=== PATIENT | female | born 1950 | race African-American/Black ===

== ENCOUNTER 2016-07-14 11:14 | Emergency (ER) | payer OTHER ==
[2016-07-14 11:24] VITALS: TEMP 98.2; BMI 35.4
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
[2016-07-14 13:10] LABS: BASOPHIL 0.4 % (0-2.0); EOSINOPHIL 1.3 % (0-4.5); MCH 27.4 pg (25.7-33.7); MCHC 32.6 g/dl (32.0-36.0); MEAN CELL VOLUME 84.1 fl (80-96); MEAN PLT VOLUME 7.9 fl (7.5-11.1); NEUTROPHILS 58.3 % (42.8-82.8); PLATELET COUNT 175 K/MM3 (134-434); RDW 14.6 % (11.6-15.6); WHITE BLOOD COUNT 4.8 K/mm3 (4.0-10.0)
[2016-07-14 13:27] LABS: ALBUMIN 3.6 g/dl (3.4-5.0); ANION GAP 7 (8-16); CALCIUM 8.8 mg/dL (8.5-10.1); CO2 28 mmol/L (21-32); CREATININE 0.7 mg/dL (0.55-1.02); GLUCOSE,RANDOM 75 mg/dL (74-106); SGOT/AST 17 U/L (15-37); SGPT/ALT 15 U/L (12-78)
[2016-07-14 13:31] LABS: ALK PHOS 70 U/L (45-117); BILIRUBIN,TOTAL 0.7 mg/dL (0.2-1.0); TOT PROT 7.5 g/dl (6.4-8.2); TROPONIN I < 0.02 ng/ml (0.00-0.05)
[2016-07-14 13:44] LABS: INR 1.11 (0.82-1.09); PROTHROMBIN TIME (PATIENT) 12.2 SEC (9.98-11.88)
[2016-07-14 14:51] VITALS: BP 125/78; PULSE 70
[2016-07-14 15:15] LABS: URINE APPEARANCE CLEAR; URINE BILIRUBIN NEGATIVE (NEGATIVE); URINE COLOR LTYELLOW; URINE GLUCOSE (UA) NEGATIVE (NEGATIVE); URINE KETONE NEGATIVE (NEGATIVE); URINE LEUK ESTERASE NEGATIVE (NEGATIVE); URINE NITRITE NEGATIVE (NEGATIVE); URINE PROTEIN NEGATIVE (NEGATIVE); URINE UROBILINOGEN NEGATIVE E.U./dl (0.2-1.0)
[2016-07-14 15:23] LABS: URINE BLOOD 1+ (NEGATIVE)
[2016-07-14 15:38] LABS: URINE MUCUS RARE; URINE RBC 1 /hpf (0-3); URINE WBC 1 /hpf (3-5)
--- NOTE | 2016-07-14 16:04 | EKG ---
Test Reason : Blood Pressure : / mmHG Vent. Rate : 064 BPM Atrial Rate : 064 BPM P-R Int : 146 ms QRS Dur : 066 ms QT Int : 432 ms P-R-T Axes : 045 058 008 degrees QTc Int : 445 ms NORMAL SINUS RHYTHM NORMAL ECG WHEN COMPARED WITH ECG OF 05-FEB-2016 12:39, NO SIGNIFICANT CHANGE WAS FOUND Confirmed by TATIANA BORDEN MD ([id number]) on 07/14/2016 4:03:25 PM Referred By: Confirmed By:TATIANA BORDEN MD
== END 2016-07-14 16:00 | disposition home or self-care (01) ==
LOC: JER 11:14
DX: R42 Dizziness and giddiness (principal)
CPT/HCPCS: 36415; 70450-TC; 80053; 81003; 81015; 82550; 84484; 85025; 85610; 93005; 93010; 99281-25

== ENCOUNTER 2016-08-22 07:18 | Day surgery (SDC) | payer OTHER ==
[2016-08-20 16:48] VITALS: BMI 31.6
[2016-08-22] MEDS ORDERED: PROPOFOL 20 ML ONE (08:02)
[2016-08-22] MEDS ORDERED: MIDAZOLAM HCL 2 MG/2 ML SINGLE DOSE VIAL ONE (08:02)
[2016-08-22] MEDS ORDERED: LIDOCAINE HCL 2% (20ML MULTI-DOSE VIAL) NR ONE (08:04)
--- NOTE | 2016-08-22 08:57 | HP ---
Satellite [facility] - Chief Complaint Chief Complaint: stiffness s/p left TKR History Source: Patient Limitations to Obtaining History: No Limitations - Past Medical History Allergies/Adverse Reactions: Allergies Allergy/AdvReac Type Severity Reaction Status Date / Time No Known Drug Allergies Allergy Verified 08/20/16 16:54 Gastrointestinal: Yes: Diverticulitis Hepatobiliary: Yes: Hepatitis C Heme/Onc: Yes: Anemia Endocrine: Yes: Hyperthyroidism - Current Medications Current Medications: Home Medications Medication Instructions Recorded Levothyroxine [Synthroid -] 75 mcg PO DAILY 01/18/16 Oxycodone HCl 5 mg PO Q8H PRN 02/05/16 Cetirizine HCl [Zyrtec -] 10 mg PO DAILY 08/20/16 Cholecalciferol (Vitamin D3) 1,000 unit PO DAILY 08/20/16 [Vitamin D3 -] Cyanocobalamin (Vitamin B-12) 2,500 mcg PO DAILY 08/20/16 [Vitamin B12] [place]-3 Fatty Acids [[place]-3] 1,000 mg PO DAILY 08/20/16 Zolpidem Tartrate [Ambien] 5 mg PO HS 08/22/16 Satellite Physical Exam - Physical Examination Vital Signs: Vital Signs Period Temp Pulse Resp BP Sys/Luna Pulse Ox Last 24 Hr 98.1 F 85 20 100/74 99 Extremities: Other (AROM 0-60) Satellite Impression/Plan - Impression/Plan Impression: stiffness s/p left TKR Operative Procedure: GUANACO left knee Date to be Performed: 08/22/16
--- NOTE | 2016-08-22 09:02 | OP ---
Operative Note - Note: Operative Date: 08/22/16 Pre-Operative Diagnosis: stiffness s/p left TKR Operation: GUANACO left knee Post-Operative Diagnosis: Same as Pre-op Surgeon: Ramy Santo Anesthesia: General Estimated Blood Loss (mls): 0 Operative Report Dictated: Yes
[2016-08-22] MEDS ORDERED: ONDANSETRON 4 MG/2 ML VIAL IVPUSH PRN (09:16)
[2016-08-22] MEDS ORDERED: LACTATED RINGERS SOLUTION 1,000 ML IV SCH (09:30)
[2016-08-22 10:39] VITALS: TEMP 100
[2016-08-22] MEDS ORDERED: oxyCODONE HCL 5 MG TABLET ONE (11:43)
[2016-08-22 11:53] VITALS: BP 114/63; PULSE 75
--- NOTE | 2016-08-23 10:40 | OP ---
DATE OF OPERATION: 08/22/2016 PREOPERATIVE DIAGNOSIS: Stiffness status post left total knee replacement. POSTOPERATIVE DIAGNOSIS: Stiffness status post left total knee replacement. PROCEDURE: Manipulation under anesthesia. SURGICAL ATTENDING: Ramy Santo MD ANESTHESIA: IV sedation. DESCRIPTION OF OPERATIVE PROCEDURE: Patient taken to the operating room on August 22, 2016. IV sedation was administered by the anesthesiologist. Prior to the manipulation, patient had range of motion of 0 to 60, maybe 70 degrees. A gentle manipulation was performed and the knee was able to go from 0 to 120 degrees of flexion. The patella was mobilized as well. Patient was awakened from anesthesia and transferred to recovery in stable condition. No complications. Flori LEBLANC/[id number]
== END 2016-08-22 12:17 | disposition home or self-care (01) ==
LOC: JASU-SURG 07:18
PROVIDERS: ATTEND Orthopaedic Surgery
PROC: 0SSDXZZ Reposition Left Knee Joint, External Approach (ICD-10-PCS; principal; 2016-08-22 08:45)
DX: M24.662 Ankylosis, left knee (principal); Z96.652 Presence of left artificial knee joint
CPT/HCPCS: 94760

== ENCOUNTER 2018-02-17 22:25 | Emergency (ER) | payer OTHER ==
[2018-02-17] MEDS ORDERED: ACETAMINOPHEN 325 MG TABLET (FP) PO ONE (22:31)
[2018-02-17 22:39] VITALS: BP 116/85; PULSE 79; TEMP 98.2; BMI 30.9
[2018-02-17] MEDS ORDERED: IBUPROFEN 600 MG TABLET (FP) PO ONE (23:34)
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
[2018-02-17] MEDS ORDERED: ACETAMINOPHEN 325 MG TABLET (FP) ONE (23:37)
--- NOTE | 2018-02-18 15:20 | PDOC ---
*Physical Exam - Vital Signs Last Vital Signs Temp Pulse Resp BP Pulse Ox 98.2 F 79 20 116/85 97 02/17/18 22:32 02/17/18 22:32 02/17/18 22:32 02/17/18 22:32 02/17/18 22:32 ED Treatment Course - Medications Given in the ED: ED Medications Discontinued Medications Generic Name Dose Route Start Last Admin Trade Name Sally PRN Reason Stop Dose Admin Acetaminophen 975 mg 02/17/18 22:31 02/18/18 00:22 Tylenol - PO 02/17/18 22:32 975 mg ONCE ONE Administration Ibuprofen 600 mg 02/17/18 23:34 02/18/18 00:23 Motrin - PO 02/17/18 23:35 600 mg ONCE ONE Administration Medical Decision Making - Medical Decision Making 02/18/18 15:19 I had spoke with the patient on the phone. The patient requires a work note for work. I hadvised the patient to return to the ER so I could write her one. She is here now picking up the paperwork. *DC/Admit/Observation/Transfer Diagnosis at time of Disposition: Contusion of foot including toes Qualifiers: Encounter type: initial encounter Laterality: unspecified laterality Qualified Code(s): S90.30XA - Contusion of unspecified foot, initial encounter; S90.129A - Contusion of unspecified lesser toe(s) without damage to nail, initial encounter Knee pain, right Qualifiers: Chronicity: acute Qualified Code(s): M25.561 - Pain in right knee - Discharge Dispostion Disposition: HOME Condition at time of disposition: Good - Referrals Referrals: Ramy Santo MD [Staff Physician] - Roman Cabrales MD [Primary Care Provider] - Santino Jordan MD [Staff Physician] - - Patient Instructions Printed Discharge Instructions: DI for Contusion, DI for Foot Sprain, DI for Knee Pain Additional Instructions: rest ice and elevate your foot use the boot and wraps for comfort, use crutches to help you ambulate and walk work note to be provided limit strenuous physical activity follow up with your orthopedic doctor for followup. - Post Discharge Activity Forms/Work/School Notes: Back to Work
== END 2018-02-18 02:11 | disposition home or self-care (01) ==
LOC: JER 22:25
DX: S90.31XA Contusion of right foot, initial encounter (principal); V79.88XA Bus occupant (driver) (passenger) injured in other specified transport accidents, initial encounter; Y93.89 Activity, other specified; Y92.811 Bus as the place of occurrence of the external cause; Y99.8 Other external cause status
CPT/HCPCS: 73562-TC-RT-FY; 73610-TC-RT-FY; 73630-TC-RT-FY; 99282-25

== ENCOUNTER 2018-05-18 13:16 | Inpatient (IN) | payer OTHER ==
--- NOTE | 2018-05-18 14:40 | PDOC ---
Attending Attestation - Resident Resident Name: Windy Bazan - ED Attending Attestation I have performed the following: I have examined & evaluated the patient, The case was reviewed & discussed with the resident, I agree w/resident's findings & plan, Exceptions are as noted - HPI HPI: 68 yo F history diverticulitis, cholecystectomy, herniorrhaphy, craniotomy (as teenager) presents with diarrhea, blood stool, vomiting multiple times today. Abd pain localizes to LLQ. She estimates that she passed approximately 1 cup of blood today. This is similar to prior episodes with diverticulitis. - Physicial Exam PE: GENERAL: Awake, alert, and fully oriented, in no acute distress. Appears uncomfortable. HEAD: No signs of trauma EYES: PERRLA, EOMI, sclera anicteric, conjunctiva clear ENT: Auricles normal inspection, hearing grossly normal, nares patent, oropharynx clear without exudates. Dry mucosa NECK: Normal ROM, supple, no lymphadenopathy, JVD, or masses LUNGS: Breath sounds equal, clear to auscultation bilaterally. No wheezes, and no crackles HEART: Regular rate and rhythm, normal S1 and S2, no murmurs, rubs or gallops ABDOMEN: Soft, diffusely tender, normoactive bowel sounds. +Guarding, no rebound. No masses. Multiple well-healed abdominal scars. EXTREMITIES: Normal range of motion, no edema. No clubbing or cyanosis. No cords , erythema, or tenderness NEUROLOGICAL: Cranial nerves II through XII grossly intact. Normal speech, normal gait. Motor and sensation intact SKIN: Warm, Dry, normal turgor, no rashes or lesions noted. - Medical Decision Making Pt with rectal bleeding, multiple prior abd surgeries, prior history diverticulitis. Will obtain CT. Likely admission based on prior history.
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
[2018-05-18] MEDS ORDERED: SODIUM CHLORIDE 2,449 ML IV ONE (14:53)
[2018-05-18] MEDS ORDERED: ACETAMINOPHEN 1000 MG/100 ML VIAL (NON FORMULARY) IVPB ONE (14:55)
[2018-05-18] MEDS ORDERED: ACETAMINOPHEN INJECTION 100 ML IVPB ONE (15:16)
[2018-05-18 15:39] LABS: BASO % 0.3 % (0-2.0); HEMATOCRIT 43.1 % (32.4-45.2); HEMOGLOBIN 14.2 GM/dL (10.7-15.3); LYMPH % 5.4 % (8-40); MCH 27.6 pg (25.7-33.7); MEAN CELL VOLUME 83.7 fl (80-96); MEAN PLT VOLUME 7.4 fl (7.5-11.1); MONO % 9.2 % (3.8-10.2); NEUT % 85.1 % (42.8-82.8); PLATELET COUNT 220 K/MM3 (134-434); RBC 5.15 M/mm3 (3.60-5.2); RDW 12.9 % (11.6-15.6); WHITE BLOOD COUNT 14.5 K/mm3 (4.0-10.0)
--- NOTE | 2018-05-18 15:48 | EKG ---
Test Reason : Blood Pressure : / mmHG Vent. Rate : 088 BPM Atrial Rate : 088 BPM P-R Int : 132 ms QRS Dur : 062 ms QT Int : 344 ms P-R-T Axes : 055 052 -22 degrees QTc Int : 416 ms NORMAL SINUS RHYTHM NONSPECIFIC T WAVE ABNORMALITY ABNORMAL ECG WHEN COMPARED WITH ECG OF 14-JUL-2016 12:36, INVERTED T WAVES HAVE REPLACED NONSPECIFIC T WAVE ABNORMALITY IN ANTERIOR LEADS Confirmed by William Bradford ([id number]) on 05/18/2018 3:48:34 PM Referred By: Confirmed By:William Bradford
[2018-05-18 15:53] LABS: VENOUS PC02 49.4 mmHg (38-52); VENOUS PH 7.37 (7.32-7.42); VENOUS PO2 18.8 mmHg (28-48)
[2018-05-18 15:54] LABS: INR 1.08 (0.83-1.09); PROTHROMBIN TIME (PATIENT) 12.7 SEC (9.7-13.0)
[2018-05-18 15:57] LABS: ACTIVATED PTT 31.5 SECONDS (25.2-36.5)
[2018-05-18 16:08] LABS: ALBUMIN 4.3 g/dl (3.4-5.0); ALK PHOS 83 U/L (45-117); ANION GAP 7 MMOL/L (8-16); BILIRUBIN,TOTAL 0.7 mg/dL (0.2-1); BLOOD UREA NITROGEN 9 mg/dL (7-18); CALCIUM 9.8 mg/dL (8.5-10.1); CHLORIDE 100 mmol/L (98-107); CO2 29 mmol/L (21-32); CREATININE 0.8 mg/dL (0.55-1.3); GLUCOSE,RANDOM 103 mg/dL (74-106); POTASSIUM 4.2 mmol/L (3.5-5.1); SGOT/AST 22 U/L (15-37); SGPT/ALT 23 U/L (13-61); SODIUM 135 mmol/L (136-145); TOT PROT 8.9 g/dl (6.4-8.2)
[2018-05-18 17:13] LABS: URINE APPEARANCE CLEAR; URINE BILIRUBIN NEGATIVE (<2.0 mg/dL); URINE COLOR LTYELLOW; URINE GLUCOSE (UA) NEGATIVE (NEGATIVE); URINE KETONE NEGATIVE (NEGATIVE); URINE LEUK ESTERASE NEGATIVE (NEGATIVE); URINE NITRITE NEGATIVE (NEGATIVE); URINE PROTEIN NEGATIVE (NEGATIVE); URINE UROBILINOGEN NEGATIVE mg/dL (0.2-1.0)
--- NOTE | 2018-05-18 17:19 | PDOC ---
*Physical Exam - Vital Signs Last Vital Signs Temp Pulse Resp BP Pulse Ox 100.6 F H 96 H 17 147/87 99 05/18/18 14:52 05/18/18 13:25 05/18/18 13:25 05/18/18 13:25 05/18/18 13:25 ED Treatment Course - LABORATORY CBC & Chemistry Diagram: 05/18/18 15:30 05/18/18 15:30 - ADDITIONAL ORDERS Additional order review: Laboratory Results 05/18/18 05/18/18 05/18/18 15:32 15:30 15:30 PT with INR INR PTT (Actin FS) VBG pH POC VBG pCO2 POC VBG pO2 Mixed VBG HCO3 Sodium Potassium Chloride Carbon Dioxide Anion Gap BUN Creatinine Creat Clearance w eGFR Random Glucose Lactic Acid 2.1 H Calcium Total Bilirubin AST ALT Alkaline Phosphatase Troponin I < 0.02 Total Protein Albumin Stool Occult Blood Positive 05/18/18 05/18/18 05/18/18 15:30 15:30 15:30 PT with INR 12.70 INR 1.08 PTT (Actin FS) 31.5 VBG pH 7.37 POC VBG pCO2 49.4 POC VBG pO2 18.8 L* Mixed VBG HCO3 27.9 H Sodium 135 L Potassium 4.2 Chloride 100 Carbon Dioxide 29 Anion Gap 7 L BUN 9 Creatinine 0.8 Creat Clearance w eGFR > 60 Random Glucose 103 Lactic Acid Calcium 9.8 Total Bilirubin 0.7 AST 22 ALT 23 Alkaline Phosphatase 83 Troponin I Total Protein 8.9 H Albumin 4.3 Stool Occult Blood 05/18/18 15:30 RBC 5.15 MCV 83.7 MCHC 33.0 RDW 12.9 D MPV 7.4 L Neutrophils % 85.1 H D Lymphocytes % 5.4 L D Monocytes % 9.2 Eosinophils % 0.0 D Basophils % 0.3 - Medications Given in the ED: ED Medications Discontinued Medications Generic Name Dose Route Start Last Admin Trade Name Freq PRN Reason Stop Dose Admin Acetaminophen 1,000 mg 05/18/18 14:55 05/18/18 15:28 Ofirmev Injection - IVPB 05/18/18 14:56 1,000 mg ONCE ONE Administration Sodium Chloride 2,449 mls @ 1,224.5 mls/hr 05/18/18 14:53 05/18/18 15:28 Normal Saline - 30 ml/kg infuse over 2 hr (2449 ml) 05/18/18 16:52 1,224.5 mls/hr IV Administration ONCE ONE Medical Decision Making - Medical Decision Making 05/18/18 17:14 68 yo female p/w rectal bleeding ,fever 100.6 05/18/18 19:19 ct scan of abd/pel is colitis,pt given antibiotics and admitted to med/surg *DC/Admit/Observation/Transfer Diagnosis at time of Disposition: Diverticulitis, Rectal bleeding, Vomiting, Intractable abdominal pain - Discharge Dispostion Condition at time of disposition: Guarded - Referrals - Patient Instructions - Post Discharge Activity
[2018-05-18 17:23] LABS: EPI CELLS RARE /HPF (FEW); URINE MUCUS RARE
[2018-05-18] MEDS ORDERED: morphine CARPU-JECT 4 MG/1 ML DISP.SYRIN IVPUSH ONE (18:15)
[2018-05-18] MEDS ORDERED: morphine SULFATE 4 MG/ML VIAL ONE (18:34)
[2018-05-19] MEDS ORDERED: MORPHINE SULFATE 2 MG/ML VIAL IVPUSH ONE ×2 (00:38→11:30)
[2018-05-19] MEDS ORDERED: SODIUM CHLORIDE 1,000 ML IV SCH (01:00)
[2018-05-19 01:31] VITALS: BMI 33.6
[2018-05-19] MEDS ORDERED: oxyCODONE HCL 5 MG TABLET PO PRN (02:13)
[2018-05-19] MEDS ORDERED: MORPHINE SULFATE 2 MG/ML VIAL IVPUSH PRN (02:41)
[2018-05-19] MEDS: DEXTROSE 5%-0.45% SALINE 1,000 ML IV SCH ×2 (02:53→20:33)
[2018-05-19] MEDS: LEVOTHYROXINE NA 75 MCG TABLET (FP) PO SCH (06:22)
[2018-05-19 07:35] LABS: BASO % 0.4 % (0-2.0); HEMATOCRIT 37.8 % (32.4-45.2); HEMOGLOBIN 12.5 GM/dL (10.7-15.3); LYMPH % 9.6 % (8-40); MCH 27.7 pg (25.7-33.7); MEAN CELL VOLUME 84.2 fl (80-96); MEAN PLT VOLUME 7.9 fl (7.5-11.1); MONO % 10.6 % (3.8-10.2); NEUT % 79.4 % (42.8-82.8); PLATELET COUNT 173 K/MM3 (134-434); RBC 4.49 M/mm3 (3.60-5.2); RDW 12.8 % (11.6-15.6); WHITE BLOOD COUNT 14.4 K/mm3 (4.0-10.0)
--- NOTE | 2018-05-19 07:35 | PN ---
Progress Note (short form) - Note Progress Note: Patient seen and case discussed with Dr. Del Toro GI consult placed due to Abdominal and Pelvic CT scan showing colitis. Patient this morning and she states she is followed by Dr. Bloom for GI as an outpatient. While in-patient she requests to have Dr. Bloom follow her case. New consult placed for Dr. Bloom.
[2018-05-19 07:57] LABS: ALBUMIN 3.3 g/dl (3.4-5.0); ALK PHOS 64 U/L (45-117); ANION GAP 9 MMOL/L (8-16); BILIRUBIN,TOTAL 0.9 mg/dL (0.2-1); BLOOD UREA NITROGEN 8 mg/dL (7-18); CALCIUM 9.1 mg/dL (8.5-10.1); CHLORIDE 105 mmol/L (98-107); CO2 24 mmol/L (21-32); CREATININE 0.8 mg/dL (0.55-1.3); GLUCOSE,RANDOM 121 mg/dL (74-106); POTASSIUM 3.7 mmol/L (3.5-5.1); SGOT/AST 15 U/L (15-37); SGPT/ALT 17 U/L (13-61); SODIUM 139 mmol/L (136-145)
[2018-05-19] MEDS: ACETAMINOPHEN 325 MG TABLET (FP) PO PRN ×2 (10:00→18:42)
[2018-05-19] MEDS: HEPARIN NA (PORCINE) 5,000 UNITS/ML 1ML VIAL SQ SCH ×2 (10:01→21:18)
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
[2018-05-19] MEDS: ONDANSETRON 4 MG/2 ML VIAL IVPUSH PRN (11:59)
[2018-05-19] MEDS ORDERED: BISACODYL 5 MG TABLET.DR (FP) PO ONE (12:18)
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
[2018-05-19] MEDS: MORPHINE SULFATE 2 MG/ML VIAL IVPUSH PRN ×3 (15:32→23:55)
[2018-05-19] MEDS ORDERED: PIPERACILLIN/TAZOBACTAM 3.375 GM VIAL IVPB ONE (18:38)
[2018-05-19] MEDS ORDERED: DEXTROSE 5%-WATER - 50 ML IVPB ONE (18:38)
[2018-05-19] MEDS: PIPERACILLIN/TAZOB 3.375 GM 3.375 GM in DEXTROSE 5%-WATER - 50 ML IVPB SCH (18:43)
[2018-05-20] MEDS ORDERED: PIPERACILLIN/TAZOBACTAM 3.375 GM VIAL IVPB ONE ×3 (01:56→17:30)
[2018-05-20] MEDS ORDERED: DEXTROSE 5%-WATER - 50 ML IVPB ONE ×3 (01:56→17:30)
[2018-05-20] MEDS: PIPERACILLIN/TAZOB 3.375 GM 3.375 GM in DEXTROSE 5%-WATER - 50 ML IVPB SCH ×3 (01:58→17:46)
[2018-05-20] MEDS ORDERED: DEXTROSE 5%-0.45% SALINE 1,000 ML IV SCH (02:30)
[2018-05-20] MEDS: DEXTROSE 5%-0.45% SALINE 1,000 ML IV SCH ×3 (03:27→22:58)
[2018-05-20] MEDS: MORPHINE SULFATE 2 MG/ML VIAL IVPUSH PRN ×3 (06:40→16:18)
[2018-05-20] MEDS: LEVOTHYROXINE NA 75 MCG TABLET (FP) PO SCH (06:41)
[2018-05-20 07:29] LABS: BASO % 0.2 % (0-2.0); EOS % 0.6 % (0-4.5); HEMATOCRIT 36.5 % (32.4-45.2); LYMPH % 12.2 % (8-40); MCH 27.7 pg (25.7-33.7); MCHC 32.8 g/dl (32.0-36.0); MEAN CELL VOLUME 84.4 fl (80-96); MEAN PLT VOLUME 7.7 fl (7.5-11.1); MONO % 9.9 % (3.8-10.2); NEUT % 77.1 % (42.8-82.8); PLATELET COUNT 176 K/MM3 (134-434); RBC 4.33 M/mm3 (3.60-5.2); RDW 13.2 % (11.6-15.6); WHITE BLOOD COUNT 12.1 K/mm3 (4.0-10.0)
[2018-05-20 07:53] LABS: ANION GAP 6 MMOL/L (8-16); BLOOD UREA NITROGEN 5 mg/dL (7-18); CHLORIDE 105 mmol/L (98-107); CO2 27 mmol/L (21-32); CREATININE 0.9 mg/dL (0.55-1.3); GLUCOSE,RANDOM 110 mg/dL (74-106); POTASSIUM 3.8 mmol/L (3.5-5.1); SODIUM 137 mmol/L (136-145)
--- NOTE | 2018-05-20 08:42 | CONSULT ---
- Consultation REQUESTING PROVIDER: CONSULT REQUEST: We have been asked to surgically evaluate this patient for rectal bleeding/abd pain PCP:Maura Sheehan HISTORY OF PRESENT ILLNESS: 68yo F admitted to the hospital for colitis and rectal bleeding. Pt states that bloody diarrhea started 2 days ago, with associated n/v. Pt also complained of diffuse abd pain, which persists but is improving. Pt now complains of nausea, but no vomiting. In 2005 pt states that she had episode of diverticulitis, but no bloody stool at the time. Pt had multiple abd surgeries including, lap [place], , and incisional hernia repair. Pt currently denies any fever and last bloody BM was 2 days ago. PMHx: hypothyroidism Home Medications Medication Instructions Recorded Levothyroxine [Synthroid -] 75 mcg PO DAILY 01/18/16 Oxycodone HCl 5 mg PO Q8H PRN 02/05/16 Cholecalciferol (Vitamin D3) 1,000 unit PO DAILY 08/20/16 [Vitamin D3 -] [place]-3 Fatty Acids [[place]-3] 1,000 mg PO DAILY 08/20/16 Loratadine [Claritin -] 10 mg PO DAILY 05/18/18 Allergies Allergy/AdvReac Type Severity Reaction Status Date / Time No Known Drug Allergies Allergy Verified 08/20/16 16:54 PHYSICAL EXAM: GENERAL: Awake, alert, and fully oriented, in no acute distress. HEAD: Normal with no signs of trauma. EYES: PERRL, sclera anicteric, conjunctiva clear. NECK: Normal ROM LUNGS: Clear to auscultation bilat anteriorly. No wheezes, and no crackles. No accessory muscle use. HEART: Regular rate and rhythm. No murmurs ABDOMEN: Soft, mild distension, moderate diffuse tenderness, no rebound, no masses. No organomegaly. LOWER EXTREMITIES: No peripheral edema. NEUROLOGICAL: Normal speech, gait not observed. PSYCH: Cooperative. Good eye contact. Appropriate mood and affect. SKIN: Warm, dry, normal turgor, no rashes or lesions noted. Vital Signs Temperature 98.6 F 05/20/18 06:00 Pulse Rate 73 05/20/18 06:00 Respiratory Rate 18 05/20/18 06:00 Blood Pressure 88/56 L 05/20/18 06:00 O2 Sat by Pulse Oximetry (%) 95 05/19/18 21:00 Lab Results WBC 12.1 K/mm3 (4.0-10.0) H 05/20/18 06:30 RBC 4.33 M/mm3 (3.60-5.2) 05/20/18 06:30 Hgb 12.0 GM/dL (10.7-15.3) 05/20/18 06:30 Hct 36.5 % (32.4-45.2) 05/20/18 06:30 MCV 84.4 fl (80-96) 05/20/18 06:30 MCHC 32.8 g/dl (32.0-36.0) 05/20/18 06:30 RDW 13.2 % (11.6-15.6) 05/20/18 06:30 Plt Count 176 K/MM3 (134-434) 05/20/18 06:30 Sodium 137 mmol/L (136-145) 05/20/18 06:30 Potassium 3.8 mmol/L (3.5-5.1) 05/20/18 06:30 Chloride 105 mmol/L (98-107) 05/20/18 06:30 Carbon Dioxide 27 mmol/L (21-32) 05/20/18 06:30 Anion Gap 6 MMOL/L (8-16) L 05/20/18 06:30 BUN 5 mg/dL (7-18) L 05/20/18 06:30 Creatinine 0.9 mg/dL (0.55-1.3) 05/20/18 06:30 Random Glucose 110 mg/dL (74-106) H 05/20/18 06:30 Calcium 8.0 mg/dL (8.5-10.1) L 05/20/18 06:30 Blood Type A POSITIVE 05/18/18 15:30 Antibody Screen Negative 05/18/18 15:30 INR 1.08 (0.83-1.09) 05/18/18 15:30 Problem List - Problems (1) Colitis Assessment/Plan: Plan -continue IV abx as per med/ID -serial abd exams -per GI note will have colonoscopy on Thursday -NPO w/ IV fluides -will continue to follow. Code(s): K52.9 - NONINFECTIVE GASTROENTERITIS AND COLITIS, UNSPECIFIED
[2018-05-20] MEDS ORDERED: PEG3350/SOD SULF,BICARB,CL/KCL 4,000 ML SOLN.RECON PO ONE (09:00)
[2018-05-20] MEDS: HEPARIN NA (PORCINE) 5,000 UNITS/ML 1ML VIAL SQ SCH ×2 (10:37→22:59)
--- NOTE | 2018-05-20 12:05 | PN ---
Progress Note, Physician History of Present Illness: continues to have abd pain plan is for ct scan of the abdomen - Current Medication List Current Medications: Active Medications Acetaminophen (Tylenol -) 650 mg PO Q6H PRN PRN Reason: PAIN LEVEL 1-5 Last Admin: 05/19/18 18:42 Dose: 650 mg Bisacodyl (Dulcolax -) 20 mg PO ONCE ONE Stop: 05/20/18 18:01 Heparin Sodium (Porcine) (Heparin -) 5,000 unit SQ BID [facility] Last Admin: 05/20/18 10:37 Dose: 5,000 unit Piperacillin Sod/Tazobactam (Sod 3.375 gm/ Dextrose) 50 mls @ 100 mls/hr IVPB Q8H-IV AUDRA; Protocol Last Admin: 05/20/18 10:37 Dose: 100 mls/hr Dextrose/Sodium Chloride (D5-1/2ns -) 1,000 mls @ 125 mls/hr IV ASDIR AUDRA Last Admin: 05/20/18 10:37 Dose: 125 mls/hr Levothyroxine Sodium (Synthroid -) 75 mcg PO DAILY@0700 [facility] Last Admin: 05/20/18 06:41 Dose: 75 mcg Morphine Sulfate (Morphine Sulfate) 2 mg IVPUSH Q4H PRN PRN Reason: PAIN LEVEL 6-10 Last Admin: 05/20/18 10:37 Dose: 2 mg Ondansetron HCl (Zofran Injection) 4 mg IVPUSH Q8H PRN PRN Reason: NAUSEA Last Admin: 05/19/18 11:59 Dose: 4 mg - Objective Vital Signs: Vital Signs Temperature 98.6 F 05/20/18 06:00 Pulse Rate 73 05/20/18 09:36 Respiratory Rate 20 05/20/18 09:36 Blood Pressure 105/63 05/20/18 09:36 O2 Sat by Pulse Oximetry (%) 95 05/20/18 09:00 Constitutional: Yes: Calm Cardiovascular: Yes: Regular Rate and Rhythm Respiratory: Yes: Regular, CTA Bilaterally Gastrointestinal: Yes: Soft, Tenderness (left lower quadrant), Other (absent bowel sounds) Musculoskeletal: Yes: WNL Extremities: Yes: WNL Neurological: Yes: Alert, Oriented Psychiatric: Yes: Alert, Oriented Labs: CBC, BMP 05/20/18 06:30 05/20/18 06:30 INR, PTT INR 1.08 (0.83-1.09) 05/18/18 15:30 Assessment/Plan patient with abd pain,blood per rectum,continues to have severe abd pain imaging studies shows ac colitis and patient having leukocytosis also patientents previous history noted Problem List - Problems (1) Colitis Code(s): K52.9 - NONINFECTIVE GASTROENTERITIS AND COLITIS, UNSPECIFIED (2) Diverticulosis Code(s): K57.90 - DVRTCLOS OF INTEST, PART UNSP, W/O PERF OR ABSCESS W/O BLEED (3) Family history of colon cancer in father Code(s): Z80.0 - FAMILY HISTORY OF MALIGNANT NEOPLASM OF DIGESTIVE ORGANS (4) History of cocaine abuse Code(s): Z87.898 - PERSONAL HISTORY OF OTHER SPECIFIED CONDITIONS (5) History of heroin abuse Code(s): Z87.898 - PERSONAL HISTORY OF OTHER SPECIFIED CONDITIONS (6) History of cholecystectomy Code(s): Z90.49 - ACQUIRED ABSENCE OF OTHER SPECIFIED PARTS OF DIGESTIVE TRACT (7) Diverticulitis Assessment/Plan: Doubt diverticulitis or diverticular bleed Code(s): K57.92 - DVTRCLI OF INTEST, PART UNSP, W/O PERF OR ABSCESS W/O BLEED (8) Rectal bleeding Code(s): K62.5 - HEMORRHAGE OF ANUS AND RECTUM (9) Hepatitis C Assessment/Plan: Has been cured. Will check AFP Code(s): B19.20 - UNSPECIFIED VIRAL HEPATITIS C WITHOUT HEPATIC COMA Assessment/Plan continue current mgmt await for ct abx hydration rest as per the team
--- NOTE | 2018-05-20 15:22 | PN ---
Progress Note (short form) - Note Progress Note: 68 yr old with colitis extending from the transverse colon to the sigmoidand rectum. She remains with diffuse abdominal pain Exam diffusely tender but no peritonitis WBC decreasing Ct imaging shows some improvement Colitis iischemic vs infectious continue antibiotics and observation
--- NOTE | 2018-05-20 17:54 | PN ---
Progress Note, Physician History of Present Illness: Pt still having abdominal pain but no further bleeding - Current Medication List Current Medications: Active Medications Acetaminophen (Tylenol -) 650 mg PO Q6H PRN PRN Reason: PAIN LEVEL 1-5 Last Admin: 05/19/18 18:42 Dose: 650 mg Bisacodyl (Dulcolax -) 20 mg PO ONCE ONE Stop: 05/20/18 18:01 Heparin Sodium (Porcine) (Heparin -) 5,000 unit SQ BID [facility] Last Admin: 05/20/18 10:37 Dose: 5,000 unit Piperacillin Sod/Tazobactam (Sod 3.375 gm/ Dextrose) 50 mls @ 100 mls/hr IVPB Q8H-IV AUDRA; Protocol Last Admin: 05/20/18 17:46 Dose: 100 mls/hr Dextrose/Sodium Chloride (D5-1/2ns -) 1,000 mls @ 125 mls/hr IV ASDIR AUDRA Last Admin: 05/20/18 10:37 Dose: 125 mls/hr Levothyroxine Sodium (Synthroid -) 75 mcg PO DAILY@0700 [facility] Last Admin: 05/20/18 06:41 Dose: 75 mcg Morphine Sulfate (Morphine Sulfate) 2 mg IVPUSH Q4H PRN PRN Reason: PAIN LEVEL 6-10 Last Admin: 05/20/18 16:18 Dose: 2 mg Ondansetron HCl (Zofran Injection) 4 mg IVPUSH Q8H PRN PRN Reason: NAUSEA Last Admin: 05/19/18 11:59 Dose: 4 mg Oxycodone HCl (Roxicodone -) 10 mg PO Q4H PRN PRN Reason: PAIN SCALE 5-10 - Objective Vital Signs: Vital Signs Temperature 98.2 F 05/20/18 13:02 Pulse Rate 73 05/20/18 13:02 Respiratory Rate 18 05/20/18 13:02 Blood Pressure 105/62 05/20/18 13:02 O2 Sat by Pulse Oximetry (%) 95 05/20/18 09:00 HENT: Yes: WNL Neck: Yes: WNL, Supple Cardiovascular: Yes: WNL, Regular Rate and Rhythm Respiratory: Yes: WNL, Regular, CTA Bilaterally Gastrointestinal: Yes: Normal Bowel Sounds, Soft, Other ((+) minimal LLQ tenderness on palpation (-) guarding/rebound) Labs: CBC, BMP 05/20/18 06:30 05/20/18 06:30 INR, PTT INR 1.08 (0.83-1.09) 05/18/18 15:30 Problem List - Problems (1) Abdominal pain Assessment/Plan: Infectious colitis vs ischemic colitis Cont NPO Cont IVF/zofran/morphine Repeat ct scan abd/pelvis showed colitis w/ possible improvement As per GI possible colonoscopy in am Monitor WBC Cont IV zosyn Code(s): R10.9 - UNSPECIFIED ABDOMINAL PAIN (2) Rectal bleeding Assessment/Plan: No further bleeding Monitor H/H Pt hemodynamically stable Cont IVF/NPO Code(s): K62.5 - HEMORRHAGE OF ANUS AND RECTUM (3) Hypothyroid Assessment/Plan: Cont levothyroxine Code(s): E03.9 - HYPOTHYROIDISM, UNSPECIFIED (4) History of heroin abuse Code(s): Z87.898 - PERSONAL HISTORY OF OTHER SPECIFIED CONDITIONS
[2018-05-20] MEDS ORDERED: BISACODYL 5 MG TABLET.DR (FP) PO ONE (18:00)
[2018-05-20] MEDS ORDERED: PANTOPRAZOLE SODIUM 40 MG VIAL IVPUSH ONE (18:00)
[2018-05-20] MEDS: oxyCODONE HCL 5 MG TABLET PO PRN (19:44)
[2018-05-21] MEDS ORDERED: PIPERACILLIN/TAZOBACTAM 3.375 GM VIAL IVPB ONE ×4 (00:53→20:49)
[2018-05-21] MEDS ORDERED: DEXTROSE 5%-WATER - 50 ML IVPB ONE ×4 (00:53→20:49)
[2018-05-21] MEDS: oxyCODONE HCL 5 MG TABLET PO PRN ×5 (01:52→21:13)
[2018-05-21] MEDS: PIPERACILLIN/TAZOB 3.375 GM 3.375 GM in DEXTROSE 5%-WATER - 50 ML IVPB SCH ×3 (01:53→18:21)
[2018-05-21] MEDS: DEXTROSE 5%-0.45% SALINE 1,000 ML IV SCH ×2 (06:19→15:37)
[2018-05-21] MEDS: LEVOTHYROXINE NA 75 MCG TABLET (FP) PO SCH (06:19)
[2018-05-21] MEDS: HEPARIN NA (PORCINE) 5,000 UNITS/ML 1ML VIAL SQ SCH ×2 (09:58→21:12)
--- NOTE | 2018-05-21 10:19 | PN ---
Progress Note (short form) - Note Progress Note: Pt seen and examined. States she is doing "okay" today. Continues to have abdominal pain with examination. Reports a bowel movement this morning with passage of "alot of blood". Per RN bowel movement with burgundy with no passage of BRBPR. Has been oob without issue. Is NPO. Not passing flatus, however reports significant rumbling in her stomach. Denies cp/sob, n/v. Vital Signs Temp 98 F 05/21/18 06:00 Pulse 71 05/21/18 06:00 Resp 18 05/21/18 06:00 BP 99/62 05/21/18 06:00 Pulse Ox 96 05/20/18 21:00 Intake & Output 05/20/18 05/20/18 05/21/18 11:59 23:59 11:59 Intake Total 450 1850 975 Balance 450 1850 975 Weight 190 lb Intake: IV 450 1750 875 D5-1/2Ns - 1,000 ml @ 100 200 mls/hr IV ASDIR AUDRA Rx#: [id number] D5-1/2Ns - 1,000 ml @ 924 852 1331 875 mls/hr IV ASDIR AUDRA Rx#: [id number] IVPB 100 100 Oral 0 0 Other: Voiding Method Toilet Toilet Bowel Movement No Height 5 ft 3 in Body Mass Index (BMI) 33.6 CBC, BMP 05/20/18 06:30 05/20/18 06:30 Gen: awake, alert, nad Resp: unlabored on RA Abdo: soft, nondistended, +TTP LLQ, +bowel sounds. Ext: no edema or calf pain A/P: 68 y/o F w/ PMH diverticulitis, hypothyroidism, Hep C, and ex-IVDA(heroin/ cocaine), now a/w abdominal pain, found to have colitis. BP remains low. Leukocytosis trending down. LLQ tenderness, no signs of peritonitis. -continue IV abx as per med/ID -serial abd exams -per GI note will have colonoscopy today -NPO w/ IVF -will continue to follow above d./w attending Dr Dunn
[2018-05-21] MEDS: ACETAMINOPHEN 325 MG TABLET (FP) PO PRN ×2 (12:20→21:14)
--- NOTE | 2018-05-21 12:43 | PN ---
Progress Note, Physician History of Present Illness: patient improving still continues to have pain but improving using pain meds - Current Medication List Current Medications: Active Medications Acetaminophen (Tylenol -) 650 mg PO Q6H PRN PRN Reason: PAIN LEVEL 1-5 Last Admin: 05/21/18 12:20 Dose: 650 mg Heparin Sodium (Porcine) (Heparin -) 5,000 unit SQ BID [facility] Last Admin: 05/21/18 09:58 Dose: 5,000 unit Piperacillin Sod/Tazobactam (Sod 3.375 gm/ Dextrose) 50 mls @ 100 mls/hr IVPB Q8H-IV AUDRA; Protocol Last Admin: 05/21/18 09:57 Dose: 100 mls/hr Dextrose/Sodium Chloride (D5-1/2ns -) 1,000 mls @ 125 mls/hr IV ASDIR AUDRA Last Admin: 05/21/18 06:19 Dose: 125 mls/hr Levothyroxine Sodium (Synthroid -) 75 mcg PO DAILY@0700 [facility] Last Admin: 05/21/18 06:19 Dose: 75 mcg Morphine Sulfate (Morphine Sulfate) 2 mg IVPUSH Q4H PRN PRN Reason: PAIN LEVEL 6-10 Last Admin: 05/20/18 16:18 Dose: 2 mg Ondansetron HCl (Zofran Injection) 4 mg IVPUSH Q8H PRN PRN Reason: NAUSEA Last Admin: 05/19/18 11:59 Dose: 4 mg Oxycodone HCl (Roxicodone -) 10 mg PO Q4H PRN PRN Reason: PAIN SCALE 5-10 Last Admin: 05/21/18 10:09 Dose: 10 mg - Objective Vital Signs: Vital Signs Temperature 98.7 F 05/21/18 10:00 Pulse Rate 76 05/21/18 10:00 Respiratory Rate 18 05/21/18 10:00 Blood Pressure 113/59 L 05/21/18 10:00 O2 Sat by Pulse Oximetry (%) 96 05/20/18 21:00 Constitutional: Yes: No Distress, Calm Cardiovascular: Yes: Regular Rate and Rhythm Respiratory: Yes: Regular, CTA Bilaterally Gastrointestinal: Yes: Soft, Hypoactive Bowel Sounds, Tenderness Musculoskeletal: Yes: WNL Extremities: Yes: WNL Neurological: Yes: Alert, Oriented Psychiatric: Yes: Alert, Oriented Labs: CBC, BMP 05/20/18 06:30 05/20/18 06:30 INR, PTT INR 1.08 (0.83-1.09) 05/18/18 15:30 - ....Imaging Cat Scan: Report Reviewed, Image Reviewed Assessment/Plan patient with abd pain,blood per rectum,continues to have severe abd pain imaging studies shows ac colitis and patient having leukocytosis also patientents previous history noted Problem List - Problems (1) Colitis Code(s): K52.9 - NONINFECTIVE GASTROENTERITIS AND COLITIS, UNSPECIFIED (2) Diverticulosis Code(s): K57.90 - DVRTCLOS OF INTEST, PART UNSP, W/O PERF OR ABSCESS W/O BLEED (3) Family history of colon cancer in father Code(s): Z80.0 - FAMILY HISTORY OF MALIGNANT NEOPLASM OF DIGESTIVE ORGANS (4) History of cocaine abuse Code(s): Z87.898 - PERSONAL HISTORY OF OTHER SPECIFIED CONDITIONS (5) History of heroin abuse Code(s): Z87.898 - PERSONAL HISTORY OF OTHER SPECIFIED CONDITIONS (6) History of cholecystectomy Code(s): Z90.49 - ACQUIRED ABSENCE OF OTHER SPECIFIED PARTS OF DIGESTIVE TRACT (7) Diverticulitis Assessment/Plan: Doubt diverticulitis or diverticular bleed Code(s): K57.92 - DVTRCLI OF INTEST, PART UNSP, W/O PERF OR ABSCESS W/O BLEED (8) Rectal bleeding Code(s): K62.5 - HEMORRHAGE OF ANUS AND RECTUM (9) Hepatitis C Assessment/Plan: Has been cured. Will check AFP Code(s): B19.20 - UNSPECIFIED VIRAL HEPATITIS C WITHOUT HEPATIC COMA Assessment/Plan continue current mgmt repeat ct seen continue abx hydration rest as per the team
--- NOTE | 2018-05-21 14:33 | PN ---
GI Progress Note Subjective: GI NOte: Bleeding resolved. Pain resolving. CT reveals colitis improvement. - Objective Vital Signs: Vital Signs Temperature 98.7 F 05/21/18 10:00 Pulse Rate 76 05/21/18 10:00 Respiratory Rate 18 05/21/18 10:00 Blood Pressure 113/59 L 05/21/18 10:00 O2 Sat by Pulse Oximetry (%) 96 05/20/18 21:00 Laboratory Tests 05/18/18 05/20/18 05/20/18 15:30 06:30 06:30 WBC 14.5 H 12.1 H C-Reactive Protein 8.1 H Constitutional: Calm ...Auscultate: Yes: Hypoactive Bowel Sounds ...Palpate: Yes: Soft, Other (nontender) Labs: CBC, BMP 05/20/18 06:30 05/20/18 06:30 INR, PTT INR 1.08 (0.83-1.09) 05/18/18 15:30 Assessment/Plan Resolving ischemic vs infectious colitis Clear liquids Wean off narcotics Will prep on 05/23 for colonoscopy on 05/24 Problem List - Problems (1) Colitis Assessment/Plan: The clinical and CT picture suggest infectious vs ischemic colitis rather than a diverticular bleed. It does appear to be subsiding. If the bleeding and pain subside adequately then I have advised a colonoscopy on 05/21. I have informed Maria Luisa of the potential for such complications as perforation and hemorrhage. She has signed an informed consent. I will screen stools for pathogens and C diff. Code(s): K52.9 - NONINFECTIVE GASTROENTERITIS AND COLITIS, UNSPECIFIED (2) Diverticulosis Code(s): K57.90 - DVRTCLOS OF INTEST, PART UNSP, W/O PERF OR ABSCESS W/O BLEED (3) Family history of colon cancer in father Code(s): Z80.0 - FAMILY HISTORY OF MALIGNANT NEOPLASM OF DIGESTIVE ORGANS (4) History of cocaine abuse Code(s): Z87.898 - PERSONAL HISTORY OF OTHER SPECIFIED CONDITIONS (5) History of heroin abuse Code(s): Z87.898 - PERSONAL HISTORY OF OTHER SPECIFIED CONDITIONS (6) History of cholecystectomy Code(s): Z90.49 - ACQUIRED ABSENCE OF OTHER SPECIFIED PARTS OF DIGESTIVE TRACT (7) Diverticulitis Code(s): K57.92 - DVTRCLI OF INTEST, PART UNSP, W/O PERF OR ABSCESS W/O BLEED (8) Rectal bleeding Code(s): K62.5 - HEMORRHAGE OF ANUS AND RECTUM (9) Hepatitis C Code(s): B19.20 - UNSPECIFIED VIRAL HEPATITIS C WITHOUT HEPATIC COMA
--- NOTE | 2018-05-21 19:12 | PN ---
Progress Note, Physician History of Present Illness: Pt still having abdominal pain but no further bleeding - Current Medication List Current Medications: Active Medications Acetaminophen (Tylenol -) 650 mg PO Q6H PRN PRN Reason: PAIN LEVEL 1-5 Last Admin: 05/21/18 12:20 Dose: 650 mg Bisacodyl (Dulcolax -) 20 mg PO ONCE ONE Stop: 05/23/18 18:01 Heparin Sodium (Porcine) (Heparin -) 5,000 unit SQ BID [facility] Last Admin: 05/21/18 09:58 Dose: 5,000 unit Piperacillin Sod/Tazobactam (Sod 3.375 gm/ Dextrose) 50 mls @ 100 mls/hr IVPB Q8H-IV [facility]; Protocol Last Admin: 05/21/18 18:21 Dose: 100 mls/hr Dextrose/Sodium Chloride (D5-1/2ns -) 1,000 mls @ 125 mls/hr IV ASDIR [facility] Last Admin: 05/21/18 15:37 Dose: 125 mls/hr Levothyroxine Sodium (Synthroid -) 75 mcg PO DAILY@0700 [facility] Last Admin: 05/21/18 06:19 Dose: 75 mcg Ondansetron HCl (Zofran Injection) 4 mg IVPUSH Q8H PRN PRN Reason: NAUSEA Last Admin: 05/19/18 11:59 Dose: 4 mg Oxycodone HCl (Roxicodone -) 5 mg PO Q6H PRN PRN Reason: PAIN LEVEL 6-10 Last Admin: 05/21/18 15:15 Dose: 5 mg Polyethylene Glycol (Miralax (For Daily Use) -) 17 gm PO BID [facility] Polyethylene Glycol/Electrolytes (Golytely Solution -) 4,000 ml PO ONCE ONE Stop: 05/23/18 09:01 - Objective Vital Signs: Vital Signs Temperature 98.6 F 05/21/18 18:21 Pulse Rate 71 05/21/18 18:21 Respiratory Rate 20 05/21/18 18:21 Blood Pressure 110/55 L 05/21/18 18:21 O2 Sat by Pulse Oximetry (%) 96 05/20/18 21:00 HENT: Yes: WNL Neck: Yes: WNL, Supple Cardiovascular: Yes: WNL, Regular Rate and Rhythm Respiratory: Yes: WNL, Regular, CTA Bilaterally Gastrointestinal: Yes: Normal Bowel Sounds, Soft, Other (minimal generalized tenderness but (-)gaurding/rebound) Musculoskeletal: Yes: WNL Extremities: Yes: WNL Edema: No Labs: CBC, BMP 05/20/18 06:30 05/20/18 06:30 INR, PTT INR 1.08 (0.83-1.09) 05/18/18 15:30 Problem List - Problems (1) Abdominal pain Assessment/Plan: Infectious colitis vs ischemic colitis Cont NPO Cont IVF/zofran/morphine Repeat ct scan abd/pelvis showed colitis w/ possible improvement As per GI possible colonoscopy in am Monitor WBC Cont IV zosyn Code(s): R10.9 - UNSPECIFIED ABDOMINAL PAIN (2) Rectal bleeding Code(s): K62.5 - HEMORRHAGE OF ANUS AND RECTUM (3) Hypothyroid Code(s): E03.9 - HYPOTHYROIDISM, UNSPECIFIED (4) History of heroin abuse Code(s): Z87.898 - PERSONAL HISTORY OF OTHER SPECIFIED CONDITIONS
[2018-05-21] MEDS: POLYETHYLENE GLYCOL 3350 119 GM BTL PO SCH (21:13)
[2018-05-22] MEDS: PIPERACILLIN/TAZOB 3.375 GM 3.375 GM in DEXTROSE 5%-WATER - 50 ML IVPB SCH ×3 (01:14→17:18)
[2018-05-22] MEDS: DEXTROSE 5%-0.45% SALINE 1,000 ML IV SCH ×3 (03:30→17:21)
[2018-05-22] MEDS: oxyCODONE HCL 5 MG TABLET PO PRN ×3 (04:53→19:15)
[2018-05-22] MEDS: LEVOTHYROXINE NA 75 MCG TABLET (FP) PO SCH (06:02)
--- NOTE | 2018-05-22 08:31 | PN ---
Progress Note, Physician Chief Complaint: continues to experience Abdominal pain and several bouts of diarrhea History of Present Illness: 68 yr old admitted with Colitis of unclear origin - Current Medication List Current Medications: Active Medications Acetaminophen (Tylenol -) 650 mg PO Q6H PRN PRN Reason: PAIN LEVEL 1-5 Last Admin: 05/21/18 21:14 Dose: 650 mg Bisacodyl (Dulcolax -) 20 mg PO ONCE ONE Stop: 05/23/18 18:01 Heparin Sodium (Porcine) (Heparin -) 5,000 unit SQ BID [facility] Last Admin: 05/21/18 21:12 Dose: 5,000 unit Piperacillin Sod/Tazobactam (Sod 3.375 gm/ Dextrose) 50 mls @ 100 mls/hr IVPB Q8H-IV [facility]; Protocol Last Admin: 05/22/18 01:14 Dose: 100 mls/hr Dextrose/Sodium Chloride (D5-1/2ns -) 1,000 mls @ 125 mls/hr IV ASDIR [facility] Last Admin: 05/22/18 03:30 Dose: Not Given Levothyroxine Sodium (Synthroid -) 75 mcg PO DAILY@0700 [facility] Last Admin: 05/22/18 06:02 Dose: 75 mcg Ondansetron HCl (Zofran Injection) 4 mg IVPUSH Q8H PRN PRN Reason: NAUSEA Last Admin: 05/19/18 11:59 Dose: 4 mg Oxycodone HCl (Roxicodone -) 5 mg PO Q6H PRN PRN Reason: PAIN LEVEL 6-10 Last Admin: 05/22/18 04:53 Dose: 5 mg Polyethylene Glycol (Miralax (For Daily Use) -) 17 gm PO BID [facility] Last Admin: 05/21/18 21:13 Dose: 17 gm Polyethylene Glycol/Electrolytes (Golytely Solution -) 4,000 ml PO ONCE ONE Stop: 05/23/18 09:01 - Objective Vital Signs: Vital Signs Temperature 98.9 F 05/22/18 05:51 Pulse Rate 77 05/22/18 05:51 Respiratory Rate 20 05/22/18 05:51 Blood Pressure 123/67 05/22/18 05:51 O2 Sat by Pulse Oximetry (%) 97 05/21/18 21:00 Labs: CBC, BMP 05/20/18 06:30 05/20/18 06:30 INR, PTT INR 1.08 (0.83-1.09) 05/18/18 15:30 Problem List - Problems (1) Abdominal pain Code(s): R10.9 - UNSPECIFIED ABDOMINAL PAIN (2) Colitis Code(s): K52.9 - NONINFECTIVE GASTROENTERITIS AND COLITIS, UNSPECIFIED Assessment/Plan continue observation plan for colonoscopy on thursday will remain on standby
[2018-05-22 09:05] LABS: BASO % 0.2 % (0-2.0); EOS % 1.6 % (0-4.5); HEMATOCRIT 37.3 % (32.4-45.2); HEMOGLOBIN 12.4 GM/dL (10.7-15.3); LYMPH % 13.8 % (8-40); MCH 28.2 pg (25.7-33.7); MCHC 33.4 g/dl (32.0-36.0); MEAN CELL VOLUME 84.6 fl (80-96); MEAN PLT VOLUME 7.8 fl (7.5-11.1); MONO % 10.5 % (3.8-10.2); NEUT % 73.9 % (42.8-82.8); PLATELET COUNT 186 K/MM3 (134-434); RBC 4.41 M/mm3 (3.60-5.2); WHITE BLOOD COUNT 7.6 K/mm3 (4.0-10.0)
[2018-05-22] MEDS ORDERED: PIPERACILLIN/TAZOBACTAM 3.375 GM VIAL IVPB ONE ×2 (09:17→14:13)
[2018-05-22] MEDS ORDERED: DEXTROSE 5%-WATER - 50 ML IVPB ONE ×2 (09:17→14:13)
[2018-05-22] MEDS: POLYETHYLENE GLYCOL 3350 119 GM BTL PO SCH ×2 (09:40→21:40)
[2018-05-22] MEDS: HEPARIN NA (PORCINE) 5,000 UNITS/ML 1ML VIAL SQ SCH ×2 (09:41→22:50)
[2018-05-22 10:19] LABS: ALBUMIN 3.4 g/dl (3.4-5.0); ALK PHOS 63 U/L (45-117); ANION GAP 9 MMOL/L (8-16); BILIRUBIN,TOTAL 0.5 mg/dL (0.2-1); CALCIUM 8.9 mg/dL (8.5-10.1); CHLORIDE 107 mmol/L (98-107); CO2 25 mmol/L (21-32); CREATININE 0.7 mg/dL (0.55-1.3); GLUCOSE,RANDOM 104 mg/dL (74-106); POTASSIUM 3.5 mmol/L (3.5-5.1); SGOT/AST 17 U/L (15-37); SGPT/ALT 16 U/L (13-61); SODIUM 141 mmol/L (136-145); TOT PROT 6.9 g/dl (6.4-8.2)
[2018-05-22 11:09] LABS: BLOOD UREA NITROGEN 2 mg/dL (7-18)
[2018-05-22] MEDS ORDERED: MAG HYDROX/AL HYDROX/SIMETH 30 ML UNIT-DOSE CUP PO PRN (14:10)
--- NOTE | 2018-05-22 16:33 | PN ---
Progress Note, Physician History of Present Illness: Pt still having abdominal pain and has had some diarrhea - Current Medication List Current Medications: Active Medications Acetaminophen (Tylenol -) 650 mg PO Q6H PRN PRN Reason: PAIN LEVEL 1-5 Last Admin: 05/21/18 21:14 Dose: 650 mg Al Hydroxide/Mg Hydroxide (Mylanta Oral Suspension -) 30 ml PO Q6H PRN PRN Reason: INDIGESTION Last Admin: 05/22/18 14:16 Dose: 30 ml Bisacodyl (Dulcolax -) 20 mg PO ONCE ONE Stop: 05/23/18 18:01 Heparin Sodium (Porcine) (Heparin -) 5,000 unit SQ BID [facility] Last Admin: 05/22/18 09:41 Dose: 5,000 unit Piperacillin Sod/Tazobactam (Sod 3.375 gm/ Dextrose) 50 mls @ 100 mls/hr IVPB Q8H-IV [facility]; Protocol Last Admin: 05/22/18 09:43 Dose: 100 mls/hr Dextrose/Sodium Chloride (D5-1/2ns -) 1,000 mls @ 125 mls/hr IV ASDIR [facility] Last Admin: 05/22/18 09:43 Dose: 125 mls/hr Levothyroxine Sodium (Synthroid -) 75 mcg PO DAILY@0700 [facility] Last Admin: 05/22/18 06:02 Dose: 75 mcg Ondansetron HCl (Zofran Injection) 4 mg IVPUSH Q8H PRN PRN Reason: NAUSEA Last Admin: 05/19/18 11:59 Dose: 4 mg Oxycodone HCl (Roxicodone -) 5 mg PO Q6H PRN PRN Reason: PAIN LEVEL 6-10 Last Admin: 05/22/18 13:36 Dose: 5 mg Polyethylene Glycol (Miralax (For Daily Use) -) 17 gm PO BID [facility] Last Admin: 05/22/18 09:40 Dose: 17 gm Polyethylene Glycol/Electrolytes (Golytely Solution -) 4,000 ml PO ONCE ONE Stop: 05/23/18 09:01 - Objective Vital Signs: Vital Signs Temperature 98.4 F 05/22/18 14:38 Pulse Rate 80 05/22/18 14:38 Respiratory Rate 20 05/22/18 14:38 Blood Pressure 145/89 05/22/18 14:38 O2 Sat by Pulse Oximetry (%) 97 05/22/18 09:00 HENT: Yes: WNL Neck: Yes: WNL, Supple Cardiovascular: Yes: WNL, Regular Rate and Rhythm Respiratory: Yes: WNL, Regular, CTA Bilaterally Gastrointestinal: Yes: WNL, Normal Bowel Sounds, Soft Musculoskeletal: Yes: WNL Extremities: Yes: WNL Edema: No Labs: CBC, BMP 05/22/18 07:15 05/22/18 07:15 INR, PTT INR 1.08 (0.83-1.09) 05/18/18 15:30 Problem List - Problems (1) Abdominal pain Assessment/Plan: Infectious colitis vs ischemic colitis Cont IVF/zofran/morphine Repeat ct scan abd/pelvis showed colitis w/ possible improvement As per GI possible colonoscopy on Thursday Monitor WBC Code(s): R10.9 - UNSPECIFIED ABDOMINAL PAIN (2) Rectal bleeding Assessment/Plan: No further bleeding Monitor H/H Pt hemodynamically stable Cont IVF Code(s): K62.5 - HEMORRHAGE OF ANUS AND RECTUM (3) Hypothyroid Assessment/Plan: Cont levothyroxine Code(s): E03.9 - HYPOTHYROIDISM, UNSPECIFIED (4) History of heroin abuse Code(s): Z87.898 - PERSONAL HISTORY OF OTHER SPECIFIED CONDITIONS
--- NOTE | 2018-05-22 16:38 | PN ---
Progress Note, Physician History of Present Illness: Pt seen and examined. Events noted. Pt reports 1 BM today with blood. States abdominal pain has improved somewhat. Remains afebrile. - Current Medication List Current Medications: Active Medications Acetaminophen (Tylenol -) 650 mg PO Q6H PRN PRN Reason: PAIN LEVEL 1-5 Last Admin: 05/21/18 21:14 Dose: 650 mg Al Hydroxide/Mg Hydroxide (Mylanta Oral Suspension -) 30 ml PO Q6H PRN PRN Reason: INDIGESTION Last Admin: 05/22/18 14:16 Dose: 30 ml Bisacodyl (Dulcolax -) 20 mg PO ONCE ONE Stop: 05/23/18 18:01 Heparin Sodium (Porcine) (Heparin -) 5,000 unit SQ BID [facility] Last Admin: 05/22/18 09:41 Dose: 5,000 unit Piperacillin Sod/Tazobactam (Sod 3.375 gm/ Dextrose) 50 mls @ 100 mls/hr IVPB Q8H-IV [facility]; Protocol Last Admin: 05/22/18 09:43 Dose: 100 mls/hr Dextrose/Sodium Chloride (D5-1/2ns -) 1,000 mls @ 125 mls/hr IV ASDIR [facility] Last Admin: 05/22/18 09:43 Dose: 125 mls/hr Levothyroxine Sodium (Synthroid -) 75 mcg PO DAILY@0700 [facility] Last Admin: 05/22/18 06:02 Dose: 75 mcg Ondansetron HCl (Zofran Injection) 4 mg IVPUSH Q8H PRN PRN Reason: NAUSEA Last Admin: 05/19/18 11:59 Dose: 4 mg Oxycodone HCl (Roxicodone -) 5 mg PO Q6H PRN PRN Reason: PAIN LEVEL 6-10 Last Admin: 05/22/18 13:36 Dose: 5 mg Polyethylene Glycol (Miralax (For Daily Use) -) 17 gm PO BID [facility] Last Admin: 05/22/18 09:40 Dose: 17 gm Polyethylene Glycol/Electrolytes (Golytely Solution -) 4,000 ml PO ONCE ONE Stop: 05/23/18 09:01 - Objective Vital Signs: Vital Signs Temperature 98.4 F 05/22/18 14:38 Pulse Rate 80 05/22/18 14:38 Respiratory Rate 20 05/22/18 14:38 Blood Pressure 145/89 05/22/18 14:38 O2 Sat by Pulse Oximetry (%) 97 05/22/18 09:00 Constitutional: Yes: No Distress, Calm Neck: Yes: Supple Cardiovascular: Yes: Regular Rate and Rhythm Respiratory: Yes: Regular Gastrointestinal: Yes: Normal Bowel Sounds, Soft, Tenderness (Lt sided with palpation) Genitourinary: Yes: WNL Edema: No Integumentary: Yes: WNL Neurological: Yes: Alert Labs: CBC, BMP 05/22/18 07:15 05/22/18 07:15 INR, PTT INR 1.08 (0.83-1.09) 05/18/18 15:30 Microbiology 05/18/18 15:30 Blood - Peripheral Venous Blood Culture - Preliminary NO GROWTH OBTAINED AFTER 96 HOURS, INCUBATION TO CONTINUE FOR 1 DAYS. 05/18/18 15:30 Blood - Peripheral Venous Blood Culture - Preliminary NO GROWTH OBTAINED AFTER 96 HOURS, INCUBATION TO CONTINUE FOR 1 DAYS. 05/21/18 12:22 Stool Clostridium difficile Antigen (PEPPER) - Final 05/21/18 12:22 Stool Clostridium difficile Toxin Assay - Final 05/18/18 14:50 Urine - Urine Clean Catch Urine Culture - Final Contaminated: Please Repeat Problem List - Problems (1) Abdominal pain Code(s): R10.9 - UNSPECIFIED ABDOMINAL PAIN (2) Diverticulosis Code(s): K57.90 - DVRTCLOS OF INTEST, PART UNSP, W/O PERF OR ABSCESS W/O BLEED (3) Family history of colon cancer in father Code(s): Z80.0 - FAMILY HISTORY OF MALIGNANT NEOPLASM OF DIGESTIVE ORGANS (4) History of cholecystectomy Code(s): Z90.49 - ACQUIRED ABSENCE OF OTHER SPECIFIED PARTS OF DIGESTIVE TRACT (5) History of cocaine abuse Code(s): Z87.898 - PERSONAL HISTORY OF OTHER SPECIFIED CONDITIONS (6) History of heroin abuse Code(s): Z87.898 - PERSONAL HISTORY OF OTHER SPECIFIED CONDITIONS (7) Rectal bleeding Code(s): K62.5 - HEMORRHAGE OF ANUS AND RECTUM (8) Colitis Code(s): K52.9 - NONINFECTIVE GASTROENTERITIS AND COLITIS, UNSPECIFIED (9) Hepatitis C Code(s): B19.20 - UNSPECIFIED VIRAL HEPATITIS C WITHOUT HEPATIC COMA (10) Hypothyroid Code(s): E03.9 - HYPOTHYROIDISM, UNSPECIFIED Assessment/Plan Colitis Rectal bleed Abdominal pain Hx of Diverticulosis -- lab/imaging results noted C.diff toxin/Ag negative, stool cultures pending -- continue antibiotics -- leukocytosis resolved, afebrile -- repeat CT with mild improvement -- GI following -- monitor for resolution of bleed
[2018-05-22] MEDS: ZOLPIDEM TARTRATE 5 MG TABLET PO PRN (22:29)
[2018-05-23] MEDS ORDERED: PIPERACILLIN/TAZOBACTAM 3.375 GM VIAL IVPB ONE ×2 (01:04→08:28)
[2018-05-23] MEDS ORDERED: DEXTROSE 5%-WATER - 50 ML IVPB ONE ×2 (01:04→08:29)
[2018-05-23] MEDS: PIPERACILLIN/TAZOB 3.375 GM 3.375 GM in DEXTROSE 5%-WATER - 50 ML IVPB SCH ×2 (01:23→09:17)
[2018-05-23] MEDS: DEXTROSE 5%-0.45% SALINE 1,000 ML IV SCH ×3 (01:25→11:14)
[2018-05-23] MEDS: ACETAMINOPHEN 325 MG TABLET (FP) PO PRN (05:42)
[2018-05-23] MEDS: oxyCODONE HCL 5 MG TABLET PO PRN ×2 (05:42→15:43)
[2018-05-23] MEDS: LEVOTHYROXINE NA 75 MCG TABLET (FP) PO SCH (06:05)
[2018-05-23] MEDS ORDERED: PEG 3350/NA SULF BICARB CL/KCL 4000 ML SOLN.RECON PO ONE (09:00)
[2018-05-23] MEDS: HEPARIN NA (PORCINE) 5,000 UNITS/ML 1ML VIAL SQ SCH (09:16)
[2018-05-23] MEDS: POLYETHYLENE GLYCOL 3350 119 GM BTL PO SCH ×2 (09:16→21:14)
--- NOTE | 2018-05-23 14:00 | PN ---
Progress Note, Physician History of Present Illness: Pt reports less abd pain, currently with loose BMs with prep for colonoscopy planned. Has no other complaints. - Current Medication List Current Medications: Active Medications Acetaminophen (Tylenol -) 650 mg PO Q6H PRN PRN Reason: PAIN LEVEL 1-5 Last Admin: 05/23/18 05:42 Dose: 650 mg Al Hydroxide/Mg Hydroxide (Mylanta Oral Suspension -) 30 ml PO Q6H PRN PRN Reason: INDIGESTION Last Admin: 05/22/18 14:16 Dose: 30 ml Bisacodyl (Dulcolax -) 20 mg PO ONCE ONE Stop: 05/23/18 18:01 Heparin Sodium (Porcine) (Heparin -) 5,000 unit SQ BID [facility] Last Admin: 05/23/18 09:16 Dose: 5,000 unit Piperacillin Sod/Tazobactam (Sod 3.375 gm/ Dextrose) 50 mls @ 100 mls/hr IVPB Q8H-IV [facility]; Protocol Last Admin: 05/23/18 09:17 Dose: 100 mls/hr Dextrose/Sodium Chloride (D5-1/2ns -) 1,000 mls @ 125 mls/hr IV ASDIR [facility] Last Admin: 05/23/18 11:14 Dose: 125 mls/hr Levothyroxine Sodium (Synthroid -) 75 mcg PO DAILY@0700 [facility] Last Admin: 05/23/18 06:05 Dose: 75 mcg Ondansetron HCl (Zofran Injection) 4 mg IVPUSH Q8H PRN PRN Reason: NAUSEA Last Admin: 05/19/18 11:59 Dose: 4 mg Oxycodone HCl (Roxicodone -) 5 mg PO Q6H PRN PRN Reason: PAIN LEVEL 6-10 Last Admin: 05/23/18 05:42 Dose: 5 mg Polyethylene Glycol (Miralax (For Daily Use) -) 17 gm PO BID [facility] Last Admin: 05/23/18 09:16 Dose: 17 gm Zolpidem Tartrate (Ambien -) 5 mg PO HS PRN PRN Reason: INSOMNIA Last Admin: 05/22/18 22:29 Dose: 5 mg - Objective Vital Signs: Vital Signs Temperature 98.1 F 05/23/18 13:38 Pulse Rate 75 05/23/18 13:38 Respiratory Rate 20 05/23/18 13:38 Blood Pressure 125/74 05/23/18 13:38 O2 Sat by Pulse Oximetry (%) 97 05/23/18 09:00 Constitutional: Yes: No Distress, Calm Cardiovascular: Yes: Regular Rate and Rhythm Respiratory: Yes: Regular Gastrointestinal: Yes: Normal Bowel Sounds, Soft, Tenderness (mild lower abd) Integumentary: Yes: WNL Neurological: Yes: Alert Labs: CBC, BMP 05/22/18 07:15 05/22/18 07:15 INR, PTT INR 1.08 (0.83-1.09) 05/18/18 15:30 Microbiology 05/21/18 12:22 Stool Salmonella/Shigella Culture - Preliminary Non Lactose Fermenting Gnb 05/21/18 12:22 Stool Yersinia Culture - Preliminary NO ENTERIC PATHOGENS, 24 HOURS, ON PRIMARY PLATES 05/21/18 12:22 Stool Vibrio Culture - Final NO GROWTH OF VIBRIO SPECIES OBTAINED 05/21/18 12:22 Stool Escherichia coli 0157 Culture - Final NO GROWTH OF E COLI 0157 OBTAINED 05/18/18 15:30 Blood - Peripheral Venous Blood Culture - Preliminary NO GROWTH OBTAINED AFTER 96 HOURS, INCUBATION TO CONTINUE FOR 1 DAYS. 05/18/18 15:30 Blood - Peripheral Venous Blood Culture - Preliminary NO GROWTH OBTAINED AFTER 96 HOURS, INCUBATION TO CONTINUE FOR 1 DAYS. 05/21/18 12:22 Stool Clostridium difficile Antigen (PEPPER) - Final 05/21/18 12:22 Stool Clostridium difficile Toxin Assay - Final 05/18/18 14:50 Urine - Urine Clean Catch Urine Culture - Final Contaminated: Please Repeat Problem List - Problems (1) Abdominal pain Code(s): R10.9 - UNSPECIFIED ABDOMINAL PAIN (2) Diverticulosis Code(s): K57.90 - DVRTCLOS OF INTEST, PART UNSP, W/O PERF OR ABSCESS W/O BLEED (3) Family history of colon cancer in father Code(s): Z80.0 - FAMILY HISTORY OF MALIGNANT NEOPLASM OF DIGESTIVE ORGANS (4) History of cholecystectomy Code(s): Z90.49 - ACQUIRED ABSENCE OF OTHER SPECIFIED PARTS OF DIGESTIVE TRACT (5) History of cocaine abuse Code(s): Z87.898 - PERSONAL HISTORY OF OTHER SPECIFIED CONDITIONS (6) History of heroin abuse Code(s): Z87.898 - PERSONAL HISTORY OF OTHER SPECIFIED CONDITIONS (7) Rectal bleeding Code(s): K62.5 - HEMORRHAGE OF ANUS AND RECTUM (8) Colitis Code(s): K52.9 - NONINFECTIVE GASTROENTERITIS AND COLITIS, UNSPECIFIED (9) Hepatitis C Code(s): B19.20 - UNSPECIFIED VIRAL HEPATITIS C WITHOUT HEPATIC COMA (10) Hypothyroid Code(s): E03.9 - HYPOTHYROIDISM, UNSPECIFIED Assessment/Plan Colitis Rectal bleed Abdominal pain Hx of Diverticulosis -- stool cultures for salmella/shig +GNR -- will switch antibiotics to Levaquin and flagyl -- leukocytosis resolved, afebrile -- awaiting colonoscopy
[2018-05-23] MEDS: ONDANSETRON 4 MG/2 ML VIAL IVPUSH PRN (15:43)
[2018-05-23] MEDS ORDERED: oxyCODONE HCL 5 MG TABLET PO PRN (16:11)
[2018-05-23] MEDS ORDERED: oxyCODONE HCL 5 MG TABLET PO ONE (16:15)
[2018-05-23] MEDS ORDERED: BISACODYL 5 MG TABLET.DR (FP) PO ONE (18:00)
--- NOTE | 2018-05-23 23:32 | PN ---
Progress Note, Physician History of Present Illness: Pt still having abdominal pain however is also doing prep for colonoscopy - Current Medication List Current Medications: Active Medications Acetaminophen (Tylenol -) 650 mg PO Q6H PRN PRN Reason: PAIN LEVEL 1-5 Last Admin: 05/23/18 05:42 Dose: 650 mg Al Hydroxide/Mg Hydroxide (Mylanta Oral Suspension -) 30 ml PO Q6H PRN PRN Reason: INDIGESTION Last Admin: 05/22/18 14:16 Dose: 30 ml Heparin Sodium (Porcine) (Heparin -) 5,000 unit SQ BID [facility] Last Admin: 05/23/18 09:16 Dose: 5,000 unit Dextrose/Sodium Chloride (D5-1/2ns -) 1,000 mls @ 125 mls/hr IV ASDIR [facility] Last Admin: 05/23/18 11:14 Dose: 125 mls/hr Levofloxacin (Levaquin 500 Mg Premixed Ivpb -) 500 mg in 100 mls @ 100 mls/hr IVPB DAILY [facility]; Protocol Last Admin: 05/23/18 16:00 Dose: 100 mls/hr Metronidazole (Flagyl 500mg Premixed Ivpb -) 500 mg in 100 mls @ 100 mls/hr IVPB Q8H-IV [facility] Last Admin: 05/23/18 16:59 Dose: 100 mls/hr Levothyroxine Sodium (Synthroid -) 75 mcg PO DAILY@0700 [facility] Last Admin: 05/23/18 06:05 Dose: 75 mcg Ondansetron HCl (Zofran Injection) 4 mg IVPUSH Q8H PRN PRN Reason: NAUSEA Last Admin: 05/23/18 15:43 Dose: 4 mg Oxycodone HCl (Roxicodone -) 5 mg PO Q6H PRN PRN Reason: PAIN LEVEL 4-6 Last Admin: 05/23/18 15:43 Dose: 5 mg Oxycodone HCl (Roxicodone -) 10 mg PO Q6H PRN PRN Reason: PAIN LEVEL 7-10 Last Admin: 05/23/18 22:36 Dose: 10 mg Polyethylene Glycol (Miralax (For Daily Use) -) 17 gm PO BID [facility] Last Admin: 05/23/18 21:14 Dose: Not Given Zolpidem Tartrate (Ambien -) 5 mg PO HS PRN PRN Reason: INSOMNIA Last Admin: 05/22/18 22:29 Dose: 5 mg - Objective Vital Signs: Vital Signs Temperature 98.2 F 05/23/18 18:00 Pulse Rate 69 05/23/18 18:00 Respiratory Rate 18 05/23/18 18:00 Blood Pressure 150/52 L 05/23/18 18:00 O2 Sat by Pulse Oximetry (%) 97 05/23/18 09:00 HENT: Yes: WNL Neck: Yes: WNL, Supple Cardiovascular: Yes: WNL, Regular Rate and Rhythm Respiratory: Yes: WNL, Regular, CTA Bilaterally Gastrointestinal: Yes: WNL, Normal Bowel Sounds, Soft Labs: CBC, BMP 05/22/18 07:15 05/22/18 07:15 INR, PTT INR 1.08 (0.83-1.09) 05/18/18 15:30 Problem List - Problems (1) Abdominal pain Assessment/Plan: Infectious colitis vs ischemic colitis Stool studies for salmonella/shigella (+) for nonlactose fermenting Gnb IV antibxs changed to Flagyl/levaquin Cont IVF/oxycodone Repeat ct scan abd/pelvis showed colitis w/ possible improvement As per GI possible colonoscopy on Thursday Monitor WBC Code(s): R10.9 - UNSPECIFIED ABDOMINAL PAIN (2) Rectal bleeding Assessment/Plan: No further bleeding Monitor H/H Pt hemodynamically stable Cont IVF Code(s): K62.5 - HEMORRHAGE OF ANUS AND RECTUM (3) Hypothyroid Assessment/Plan: Cont levothyroxine Code(s): E03.9 - HYPOTHYROIDISM, UNSPECIFIED (4) History of heroin abuse Code(s): Z87.898 - PERSONAL HISTORY OF OTHER SPECIFIED CONDITIONS
[2018-05-24] MEDS: LEVOTHYROXINE NA 75 MCG TABLET (FP) PO SCH (06:16)
[2018-05-24] MEDS: DEXTROSE 5%-0.45% SALINE 1,000 ML IV SCH ×2 (06:27→17:15)
[2018-05-24 06:39] LABS: BASO % 0.4 % (0-2.0); EOS % 1.7 % (0-4.5); HEMATOCRIT 35.2 % (32.4-45.2); HEMOGLOBIN 11.8 GM/dL (10.7-15.3); LYMPH % 24.1 % (8-40); MCH 28.1 pg (25.7-33.7); MCHC 33.6 g/dl (32.0-36.0); MEAN CELL VOLUME 83.5 fl (80-96); MONO % 14.5 % (3.8-10.2); NEUT % 59.3 % (42.8-82.8); PLATELET COUNT 204 K/MM3 (134-434); RBC 4.22 M/mm3 (3.60-5.2); RDW 12.9 % (11.6-15.6); WHITE BLOOD COUNT 6.3 K/mm3 (4.0-10.0)
[2018-05-24 07:49] LABS: GLUCOSE,RANDOM 110 mg/dL (74-106)
[2018-05-24 07:50] LABS: ALBUMIN 2.9 g/dl (3.4-5.0); ALK PHOS 57 U/L (45-117); ANION GAP 8 MMOL/L (8-16); BILIRUBIN,TOTAL 0.3 mg/dL (0.2-1); CALCIUM 8.1 mg/dL (8.5-10.1); CHLORIDE 107 mmol/L (98-107); CO2 27 mmol/L (21-32); CREATININE 0.6 mg/dL (0.55-1.3); POTASSIUM 3.3 mmol/L (3.5-5.1); SGOT/AST 22 U/L (15-37); SGPT/ALT 17 U/L (13-61); SODIUM 142 mmol/L (136-145); TOT PROT 6.4 g/dl (6.4-8.2)
[2018-05-24 08:40] LABS: BLOOD UREA NITROGEN 1 mg/dL (7-18)
--- NOTE | 2018-05-24 09:00 | PN ---
Progress Note (short form) - Note Progress Note: Pt seen and examined. States she is doing "okay" today. Was up all night having diarrhea due to bowel prep for colonoscopy today. Denies cp/sob, n/v. Vital Signs Temp 98.6 F 05/24/18 06:00 Pulse 80 05/24/18 06:00 Resp 20 05/24/18 06:00 BP 155/67 05/24/18 06:00 Pulse Ox 97 05/23/18 21:00 Intake & Output 05/23/18 05/23/18 05/24/18 11:59 23:59 11:59 Intake Total 1800 2525 Balance 1800 2525 Intake: IV 1500 1375 D5-1/2Ns - 1,000 ml @ 125 1500 1375 mls/hr IV ASDIR [facility] Rx#: [id number] IVPB 50 250 Oral 250 900 Other: Voiding Method Bedside Commode Bedside Commode # Unmeasured Voids Void 3 1 1 Bowel Movement No Yes: loose x3 Yes: loose x2 # Bowel Movements 3 2 CBC, BMP 05/24/18 06:30 05/24/18 06:30 Gen: awake, alert, nad Resp: unlabored on RA Abdo: soft, nondistended, No TTP LLQ, +bowel sounds. Ext: no edema or calf pain A/P: 68 y/o F w/ PMH diverticulitis, hypothyroidism, Hep C, and ex-IVDA(heroin/ cocaine), now a/w abdominal pain, found to have colitis. Afebrile, vss, leukocytosis and pain have resolved. -continue IV abx as per med/ID -serial abd exams -plan for colonoscopy today -NPO w/ IVF -will continue to follow
[2018-05-24] MEDS: POLYETHYLENE GLYCOL 3350 119 GM BTL PO SCH (09:26)
--- NOTE | 2018-05-24 11:21 | PN ---
Progress Note (short form) - Note Progress Note: GI Procedure NOte: Please see scanned colonoscopy report. The patient has a resolving colitis involving the distal transverse, descending and upper sigmoid colon. Mild sigmoid diverticulosis was also noted. Biopsies were taken and stool collected for cultures and O&P. Will advance diet. If tolerated can consider discharge. Problem List - Problems (1) Colitis Code(s): K52.9 - NONINFECTIVE GASTROENTERITIS AND COLITIS, UNSPECIFIED (2) Diverticulosis Code(s): K57.90 - DVRTCLOS OF INTEST, PART UNSP, W/O PERF OR ABSCESS W/O BLEED (3) Family history of colon cancer in father Code(s): Z80.0 - FAMILY HISTORY OF MALIGNANT NEOPLASM OF DIGESTIVE ORGANS (4) History of cocaine abuse Code(s): Z87.898 - PERSONAL HISTORY OF OTHER SPECIFIED CONDITIONS (5) History of heroin abuse Code(s): Z87.898 - PERSONAL HISTORY OF OTHER SPECIFIED CONDITIONS (6) History of cholecystectomy Code(s): Z90.49 - ACQUIRED ABSENCE OF OTHER SPECIFIED PARTS OF DIGESTIVE TRACT (7) Diverticulitis Code(s): K57.92 - DVTRCLI OF INTEST, PART UNSP, W/O PERF OR ABSCESS W/O BLEED (8) Rectal bleeding Code(s): K62.5 - HEMORRHAGE OF ANUS AND RECTUM (9) Hepatitis C Code(s): B19.20 - UNSPECIFIED VIRAL HEPATITIS C WITHOUT HEPATIC COMA
[2018-05-24] MEDS ORDERED: KCL 10 MEQ IVPB 10 MEQ/100 ML INFUS.BAG IVPB SCH (11:30)
--- NOTE | 2018-05-24 12:36 | PN ---
Progress Note, Physician History of Present Illness: patient stable colonoscopy done findings noted - Current Medication List Current Medications: Active Medications Acetaminophen (Tylenol -) 650 mg PO Q6H PRN PRN Reason: PAIN LEVEL 1-5 Last Admin: 05/23/18 05:42 Dose: 650 mg Al Hydroxide/Mg Hydroxide (Mylanta Oral Suspension -) 30 ml PO Q6H PRN PRN Reason: INDIGESTION Last Admin: 05/22/18 14:16 Dose: 30 ml Heparin Sodium (Porcine) (Heparin -) 5,000 unit SQ BID [facility] Last Admin: 05/23/18 09:16 Dose: 5,000 unit Dextrose/Sodium Chloride (D5-1/2ns -) 1,000 mls @ 125 mls/hr IV ASDIR [facility]DR[facility] Last Admin: 05/24/18 06:27 Dose: 125 mls/hr Levofloxacin (Levaquin 500 Mg Premixed Ivpb -) 500 mg in 100 mls @ 100 mls/hr IVPB DAILY [facility]; Protocol Last Admin: 05/24/18 09:26 Dose: 100 mls/hr Metronidazole (Flagyl 500mg Premixed Ivpb -) 500 mg in 100 mls @ 100 mls/hr IVPB Q8H-IV [facility]DR[facility] Last Admin: 05/24/18 09:26 Dose: 100 mls/hr Levothyroxine Sodium (Synthroid -) 75 mcg PO DAILY@0700 [facility] Last Admin: 05/24/18 06:16 Dose: 75 mcg Ondansetron HCl (Zofran Injection) 4 mg IVPUSH Q8H PRN PRN Reason: NAUSEA Last Admin: 05/23/18 15:43 Dose: 4 mg Zolpidem Tartrate (Ambien -) 5 mg PO HS PRN PRN Reason: INSOMNIA Last Admin: 05/22/18 22:29 Dose: 5 mg - Objective Vital Signs: Vital Signs Temperature 98.2 F 05/24/18 11:58 Pulse Rate 62 05/24/18 11:58 Respiratory Rate 20 05/24/18 11:58 Blood Pressure 136/71 05/24/18 11:58 O2 Sat by Pulse Oximetry (%) 97 05/24/18 11:58 Constitutional: Yes: No Distress, Calm Cardiovascular: Yes: Regular Rate and Rhythm Respiratory: Yes: Regular, CTA Bilaterally Gastrointestinal: Yes: Soft, Hypoactive Bowel Sounds Musculoskeletal: Yes: WNL Extremities: Yes: WNL Neurological: Yes: Alert, Oriented Psychiatric: Yes: Alert, Oriented Labs: CBC, BMP 05/24/18 06:30 05/24/18 06:30 INR, PTT INR 1.08 (0.83-1.09) 05/18/18 15:30 Assessment/Plan patient with abd pain,blood per rectum,continues to have severe abd pain imaging studies shows ac colitis and patient having leukocytosis also patientents previous history noted Problem List - Problems (1) Colitis Code(s): K52.9 - NONINFECTIVE GASTROENTERITIS AND COLITIS, UNSPECIFIED (2) Diverticulosis Code(s): K57.90 - DVRTCLOS OF INTEST, PART UNSP, W/O PERF OR ABSCESS W/O BLEED (3) Family history of colon cancer in father Code(s): Z80.0 - FAMILY HISTORY OF MALIGNANT NEOPLASM OF DIGESTIVE ORGANS (4) History of cocaine abuse Code(s): Z87.898 - PERSONAL HISTORY OF OTHER SPECIFIED CONDITIONS (5) History of heroin abuse Code(s): Z87.898 - PERSONAL HISTORY OF OTHER SPECIFIED CONDITIONS (6) History of cholecystectomy Code(s): Z90.49 - ACQUIRED ABSENCE OF OTHER SPECIFIED PARTS OF DIGESTIVE TRACT (7) Diverticulitis Assessment/Plan: Doubt diverticulitis or diverticular bleed Code(s): K57.92 - DVTRCLI OF INTEST, PART UNSP, W/O PERF OR ABSCESS W/O BLEED (8) Rectal bleeding Code(s): K62.5 - HEMORRHAGE OF ANUS AND RECTUM (9) Hepatitis C Assessment/Plan: Has been cured. Will check AFP Code(s): B19.20 - UNSPECIFIED VIRAL HEPATITIS C WITHOUT HEPATIC COMA Assessment/Plan continue current mgmt continue abx will see how patient does with diet if does well we will switch to oral abx
--- NOTE | 2018-05-24 14:25 | PN ---
Progress Note, Physician History of Present Illness: see h and p this note entered in error - Current Medication List Current Medications: Active Medications Acetaminophen (Tylenol -) 650 mg PO Q6H PRN PRN Reason: PAIN LEVEL 1-5 Last Admin: 05/23/18 05:42 Dose: 650 mg Al Hydroxide/Mg Hydroxide (Mylanta Oral Suspension -) 30 ml PO Q6H PRN PRN Reason: INDIGESTION Last Admin: 05/22/18 14:16 Dose: 30 ml Heparin Sodium (Porcine) (Heparin -) 5,000 unit SQ BID [facility] Last Admin: 05/23/18 09:16 Dose: 5,000 unit Dextrose/Sodium Chloride (D5-1/2ns -) 1,000 mls @ 125 mls/hr IV ASDIR [facility]DR[facility] Last Admin: 05/24/18 06:27 Dose: 125 mls/hr Levofloxacin (Levaquin 500 Mg Premixed Ivpb -) 500 mg in 100 mls @ 100 mls/hr IVPB DAILY [facility]; Protocol Last Admin: 05/24/18 09:26 Dose: 100 mls/hr Metronidazole (Flagyl 500mg Premixed Ivpb -) 500 mg in 100 mls @ 100 mls/hr IVPB Q8H-IV [facility] Last Admin: 05/24/18 09:26 Dose: 100 mls/hr Levothyroxine Sodium (Synthroid -) 75 mcg PO DAILY@0700 [facility] Last Admin: 05/24/18 06:16 Dose: 75 mcg Ondansetron HCl (Zofran Injection) 4 mg IVPUSH Q8H PRN PRN Reason: NAUSEA Last Admin: 05/23/18 15:43 Dose: 4 mg Zolpidem Tartrate (Ambien -) 5 mg PO HS PRN PRN Reason: INSOMNIA Last Admin: 05/22/18 22:29 Dose: 5 mg - Objective Vital Signs: Vital Signs Temperature 98.2 F 05/24/18 11:58 Pulse Rate 62 05/24/18 11:58 Respiratory Rate 20 05/24/18 11:58 Blood Pressure 136/71 05/24/18 11:58 O2 Sat by Pulse Oximetry (%) 97 05/24/18 11:58 Labs: CBC, BMP 05/24/18 06:30 05/24/18 06:30 INR, PTT INR 1.08 (0.83-1.09) 05/18/18 15:30
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
[2018-05-24] MEDS ORDERED: POTASSIUM CHLORIDE TABS 20 MEQ TABLET.ER (FP) PO ONE (17:06)
[2018-05-24 19:54] LABS: URINE APPEARANCE CLEAR; URINE BILIRUBIN NEGATIVE (<2.0 mg/dL); URINE COLOR LTYELLOW; URINE GLUCOSE (UA) NEGATIVE (NEGATIVE); URINE KETONE NEGATIVE (NEGATIVE); URINE LEUK ESTERASE TRACE (NEGATIVE); URINE NITRITE NEGATIVE (NEGATIVE); URINE PROTEIN NEGATIVE (NEGATIVE); URINE UROBILINOGEN NEGATIVE mg/dL (0.2-1.0)
[2018-05-24 20:08] LABS: EPI CELLS FEW /HPF (FEW); URINE MUCUS RARE
--- NOTE | 2018-05-24 23:02 | PN ---
Progress Note, Physician History of Present Illness: Pt tolerated colonoscopy and is tolerating diet - Current Medication List Current Medications: Active Medications Acetaminophen (Tylenol -) 650 mg PO Q6H PRN PRN Reason: PAIN LEVEL 1-5 Last Admin: 05/23/18 05:42 Dose: 650 mg Al Hydroxide/Mg Hydroxide (Mylanta Oral Suspension -) 30 ml PO Q6H PRN PRN Reason: INDIGESTION Last Admin: 05/22/18 14:16 Dose: 30 ml Heparin Sodium (Porcine) (Heparin -) 5,000 unit SQ BID [facility] Last Admin: 05/23/18 09:16 Dose: 5,000 unit Levofloxacin (Levaquin 500 Mg Premixed Ivpb -) 500 mg in 100 mls @ 100 mls/hr IVPB DAILY [facility]; Protocol Last Admin: 05/24/18 09:26 Dose: 100 mls/hr Metronidazole (Flagyl 500mg Premixed Ivpb -) 500 mg in 100 mls @ 100 mls/hr IVPB Q8H-IV [facility] Last Admin: 05/24/18 17:10 Dose: 100 mls/hr Dextrose/Sodium Chloride (D5-1/2ns -) 1,000 mls @ 50 mls/hr IV ASDIR AUDR[facility] Last Admin: 05/24/18 17:15 Dose: Not Given Levothyroxine Sodium (Synthroid -) 75 mcg PO DAILY@0700 [facility] Last Admin: 05/24/18 06:16 Dose: 75 mcg Ondansetron HCl (Zofran Injection) 4 mg IVPUSH Q8H PRN PRN Reason: NAUSEA Last Admin: 05/23/18 15:43 Dose: 4 mg Zolpidem Tartrate (Ambien -) 5 mg PO HS PRN PRN Reason: INSOMNIA Last Admin: 05/22/18 22:29 Dose: 5 mg - Objective Vital Signs: Vital Signs Temperature 98.1 F 05/24/18 18:00 Pulse Rate 76 05/24/18 18:00 Respiratory Rate 18 05/24/18 18:00 Blood Pressure 127/74 05/24/18 18:00 O2 Sat by Pulse Oximetry (%) 97 05/24/18 11:58 Cardiovascular: Yes: WNL, Regular Rate and Rhythm Respiratory: Yes: WNL, Regular, CTA Bilaterally Gastrointestinal: Yes: WNL, Normal Bowel Sounds, Soft Labs: CBC, BMP 05/24/18 06:30 05/24/18 06:30 INR, PTT INR 1.08 (0.83-1.09) 05/18/18 15:30 Problem List - Problems (1) Abdominal pain Assessment/Plan: Infectious colitis vs ischemic colitis Colonoscopy showed colitis and diverticulosis Await bx/pathology report Diet advanced Stool studies for salmonella/shigella (+) for nonlactose fermenting Gnb IV Flagyl/levaquin When pt tolerates diet will change to PO antibxs Cont IVF Repeat ct scan abd/pelvis showed colitis w/ possible improvement Code(s): R10.9 - UNSPECIFIED ABDOMINAL PAIN (2) Rectal bleeding Assessment/Plan: No further bleeding Monitor H/H Pt hemodynamically stable Code(s): K62.5 - HEMORRHAGE OF ANUS AND RECTUM (3) Hypothyroid Assessment/Plan: Cont levothyroxine Code(s): E03.9 - HYPOTHYROIDISM, UNSPECIFIED (4) History of heroin abuse Code(s): Z87.898 - PERSONAL HISTORY OF OTHER SPECIFIED CONDITIONS
[2018-05-25] MEDS: ZOLPIDEM TARTRATE 5 MG TABLET PO PRN ×2 (00:14→22:40)
[2018-05-25] MEDS: LEVOTHYROXINE NA 75 MCG TABLET (FP) PO SCH (06:08)
[2018-05-25] MEDS: ONDANSETRON 4 MG/2 ML VIAL IVPUSH PRN (06:49)
[2018-05-25 08:14] LABS: ALK PHOS 55 U/L (45-117); ANION GAP 7 MMOL/L (8-16); BILIRUBIN,TOTAL 0.4 mg/dL (0.2-1); CALCIUM 8.6 mg/dL (8.5-10.1); CHLORIDE 108 mmol/L (98-107); CO2 25 mmol/L (21-32); CREATININE 0.7 mg/dL (0.55-1.3); GLUCOSE,RANDOM 108 mg/dL (74-106); POTASSIUM 3.8 mmol/L (3.5-5.1); SGOT/AST 27 U/L (15-37); SGPT/ALT 20 U/L (13-61); SODIUM 140 mmol/L (136-145); TOT PROT 6.5 g/dl (6.4-8.2)
[2018-05-25 08:58] LABS: BLOOD UREA NITROGEN 2 mg/dL (7-18)
--- NOTE | 2018-05-25 10:00 | PN ---
Progress Note (short form) - Note Progress Note: surgery Patient with resolving enteritit seen and examined at [facility] with no new complaints. Colonscopy yesterday revealed resolving colitis involving the distal transverse, descending and upper sigmoid colon. Mild sigmoid diverticulosis was also noted. Biopsies were taken and stool collected for cultures and O&P. Patient states her abdominal pain continues to improve and she has been tolerating her diet and had a non-bloody BM this morning. Vital Signs Temp 98.3 F 05/25/18 06:00 Pulse 87 05/25/18 06:00 Resp 18 05/25/18 06:00 BP 137/86 05/25/18 06:00 Pulse Ox 96 05/24/18 21:00 Intake & Output 05/24/18 05/24/18 05/25/18 11:59 23:59 11:59 Intake Total 0 1150 500 Balance 0 1150 500 Intake: IV 0 700 400 D5-1/2Ns - 1,000 ml @ 125 500 mls/hr IV ASDIR AUDRA Rx#: [id number] D5-1/2Ns - 1,000 ml @ 50 200 400 mls/hr IV ASDIR AUDRA Rx#: [id number] IVPB 300 100 Oral 150 Other: Voiding Method Bedside Commode Toilet # Unmeasured Voids Void 1 Bowel Movement Yes Body Mass Index (BMI) 33.6 BMP 05/25/18 06:30 PE: A&Ox3, NAD unlabored resp on RA ABD: obese, soft, ND, with mild TTP over LLQ. Well healed scars noted over RUQ and midline Lower abdomen. Problem List - Problems (1) Colitis Assessment/Plan: 88yo with resolving colitis and diverticulosis continues to improve. 1) ABX per primary team 2) DVT/GI prophylaxis 3) re-consult surgery PRN Evaluation an plan discussed with Dr Alonso Code(s): K52.9 - NONINFECTIVE GASTROENTERITIS AND COLITIS, UNSPECIFIED
--- NOTE | 2018-05-25 12:33 | PN ---
Progress Note, Physician - Current Medication List Current Medications: Active Medications Acetaminophen (Tylenol -) 650 mg PO Q6H PRN PRN Reason: PAIN LEVEL 1-5 Last Admin: 05/23/18 05:42 Dose: 650 mg Al Hydroxide/Mg Hydroxide (Mylanta Oral Suspension -) 30 ml PO Q6H PRN PRN Reason: INDIGESTION Last Admin: 05/22/18 14:16 Dose: 30 ml Heparin Sodium (Porcine) (Heparin -) 5,000 unit SQ BID [facility] Last Admin: 05/23/18 09:16 Dose: 5,000 unit Levofloxacin (Levaquin 500 Mg Premixed Ivpb -) 500 mg in 100 mls @ 100 mls/hr IVPB DAILY [facility]; Protocol Last Admin: 05/25/18 09:25 Dose: 100 mls/hr Metronidazole (Flagyl 500mg Premixed Ivpb -) 500 mg in 100 mls @ 100 mls/hr IVPB Q8H-IV [facility] Last Admin: 05/25/18 09:26 Dose: 100 mls/hr Dextrose/Sodium Chloride (D5-1/2ns -) 1,000 mls @ 50 mls/hr IV ASDIR [facility] Last Admin: 05/24/18 17:15 Dose: Not Given Levothyroxine Sodium (Synthroid -) 75 mcg PO DAILY@0700 [facility] Last Admin: 05/25/18 06:08 Dose: 75 mcg Ondansetron HCl (Zofran Injection) 4 mg IVPUSH Q8H PRN PRN Reason: NAUSEA Last Admin: 05/25/18 06:49 Dose: 4 mg Zolpidem Tartrate (Ambien -) 5 mg PO HS PRN PRN Reason: INSOMNIA Last Admin: 05/25/18 00:14 Dose: 5 mg - Objective Vital Signs: Vital Signs Temperature 98.1 F 05/25/18 10:00 Pulse Rate 80 05/25/18 10:00 Respiratory Rate 18 05/25/18 10:00 Blood Pressure 134/90 05/25/18 10:00 O2 Sat by Pulse Oximetry (%) 95 05/25/18 09:00 Labs: CBC, BMP 05/24/18 06:30 05/25/18 06:30 INR, PTT INR 1.08 (0.83-1.09) 05/18/18 15:30
--- NOTE | 2018-05-25 14:15 | PN ---
Progress Note, Physician History of Present Illness: Pt seen and examined at bedside. She is awake and alert. She feels appetite is improved. - Current Medication List Current Medications: Active Medications Acetaminophen (Tylenol -) 650 mg PO Q6H PRN PRN Reason: PAIN LEVEL 1-5 Last Admin: 05/23/18 05:42 Dose: 650 mg Al Hydroxide/Mg Hydroxide (Mylanta Oral Suspension -) 30 ml PO Q6H PRN PRN Reason: INDIGESTION Last Admin: 05/22/18 14:16 Dose: 30 ml Heparin Sodium (Porcine) (Heparin -) 5,000 unit SQ BID [facility] Last Admin: 05/23/18 09:16 Dose: 5,000 unit Levofloxacin (Levaquin 500 Mg Premixed Ivpb -) 500 mg in 100 mls @ 100 mls/hr IVPB DAILY [facility]; Protocol Last Admin: 05/25/18 09:25 Dose: 100 mls/hr Metronidazole (Flagyl 500mg Premixed Ivpb -) 500 mg in 100 mls @ 100 mls/hr IVPB Q8H-IV [facility] Last Admin: 05/25/18 09:26 Dose: 100 mls/hr Dextrose/Sodium Chloride (D5-1/2ns -) 1,000 mls @ 50 mls/hr IV ASDIR [facility]DR[facility] Last Admin: 05/24/18 17:15 Dose: Not Given Levothyroxine Sodium (Synthroid -) 75 mcg PO DAILY@0700 [facility] Last Admin: 05/25/18 06:08 Dose: 75 mcg Ondansetron HCl (Zofran Injection) 4 mg IVPUSH Q8H PRN PRN Reason: NAUSEA Last Admin: 05/25/18 06:49 Dose: 4 mg Zolpidem Tartrate (Ambien -) 5 mg PO HS PRN PRN Reason: INSOMNIA Last Admin: 05/25/18 00:14 Dose: 5 mg - Objective Vital Signs: Vital Signs Temperature 98.1 F 05/25/18 10:00 Pulse Rate 80 05/25/18 10:00 Respiratory Rate 18 05/25/18 10:00 Blood Pressure 134/90 05/25/18 10:00 O2 Sat by Pulse Oximetry (%) 95 05/25/18 09:00 Constitutional: Yes: Calm Eyes: Yes: Conjunctiva Clear HENT: Yes: Atraumatic Cardiovascular: Yes: S1, S2 Respiratory: Yes: CTA Bilaterally Gastrointestinal: Yes: Soft Genitourinary: Yes: WNL Musculoskeletal: Yes: WNL Edema: No Neurological: Yes: Oriented Psychiatric: Yes: Oriented Labs: CBC, BMP 05/24/18 06:30 05/25/18 06:30 INR, PTT INR 1.08 (0.83-1.09) 05/18/18 15:30 Problem List - Problems (1) Abdominal pain Code(s): R10.9 - UNSPECIFIED ABDOMINAL PAIN (2) Diverticulitis Code(s): K57.92 - DVTRCLI OF INTEST, PART UNSP, W/O PERF OR ABSCESS W/O BLEED Assessment/Plan Current Medications Generic Name Dose Route Start Last Admin Trade Name Freq PRN Reason Stop Dose Admin Acetaminophen 650 mg 05/19/18 02:33 05/23/18 05:42 Tylenol - PO 650 mg Q6H PRN Administration PAIN LEVEL 1-5 Al Hydroxide/Mg Hydroxide 30 ml 05/22/18 14:10 05/22/18 14:16 Mylanta Oral Suspension - PO 30 ml Q6H PRN Administration INDIGESTION Heparin Sodium (Porcine) 5,000 unit 05/19/18 10:00 05/23/18 09:16 Heparin - SQ 5,000 unit BID AUDRA Administration Levofloxacin 500 mg in 100 mls @ 100 mls/hr 05/23/18 17:00 05/25/18 09:25 Levaquin 500 Mg Premixed Ivpb - IVPB 100 mls/hr DAILY [facility] Administration Protocol Metronidazole 500 mg in 100 mls @ 100 mls/hr 05/23/18 18:00 05/25/18 09:26 Flagyl 500mg Premixed Ivpb - IVPB 100 mls/hr Q8H-IV AUDRA Administration Dextrose/Sodium Chloride 1,000 mls @ 50 mls/hr 05/24/18 17:05 05/24/18 17:15 D5-1/2ns - IV Not Given ASDIR AUDRA Levothyroxine Sodium 75 mcg 05/19/18 07:00 05/25/18 06:08 Synthroid - PO 75 mcg DAILY@0700 [facility] Administration Ondansetron HCl 4 mg 05/19/18 02:33 05/25/18 06:49 Zofran Injection IVPUSH 4 mg Q8H PRN Administration NAUSEA Zolpidem Tartrate 5 mg 05/22/18 17:42 05/25/18 00:14 Ambien - PO 5 mg HS PRN Administration INSOMNIA Impression 1. hypokalemia 2. low bun and sanitary inspector likely dilutional 3. hypothyroidism 4. diverticulitis 5. hx of drug use 6. hep c 7. hypothyroidism Plan - will decrease fluids further - repeat labs tomorrow - PO intake improving - abx per primary team Dr Chavarria
--- NOTE | 2018-05-25 16:22 | PN ---
GI Progress Note Subjective: GI Note: Tolerating solid diet. No pain or bleeding. - Objective Vital Signs: Vital Signs Temperature 98.1 F 05/25/18 14:42 Pulse Rate 81 05/25/18 14:42 Respiratory Rate 18 05/25/18 14:42 Blood Pressure 131/76 05/25/18 14:42 O2 Sat by Pulse Oximetry (%) 95 05/25/18 09:00 CBC,CMP WBC 6.3 K/mm3 (4.0-10.0) 05/24/18 06:30 RBC 4.22 M/mm3 (3.60-5.2) 05/24/18 06:30 Hgb 11.8 GM/dL (10.7-15.3) 05/24/18 06:30 Hct 35.2 % (32.4-45.2) 05/24/18 06:30 MCV 83.5 fl (80-96) 05/24/18 06:30 MCH 28.1 pg (25.7-33.7) 05/24/18 06:30 MCHC 33.6 g/dl (32.0-36.0) 05/24/18 06:30 RDW 12.9 % (11.6-15.6) 05/24/18 06:30 Plt Count 204 K/MM3 (134-434) 05/24/18 06:30 MPV 7.0 fl (7.5-11.1) L D 05/24/18 06:30 Absolute Neuts (auto) 3.7 K/mm3 (1.5-8.0) 05/24/18 06:30 Neutrophils % 59.3 % (42.8-82.8) 05/24/18 06:30 Lymphocytes % 24.1 % (8-40) D 05/24/18 06:30 Monocytes % 14.5 % (3.8-10.2) H 05/24/18 06:30 Eosinophils % 1.7 % (0-4.5) 05/24/18 06:30 Basophils % 0.4 % (0-2.0) 05/24/18 06:30 Nucleated RBC % 0 % (0-0) 05/24/18 06:30 Sodium 140 mmol/L (136-145) 05/25/18 06:30 Potassium 3.8 mmol/L (3.5-5.1) 05/25/18 06:30 Chloride 108 mmol/L (98-107) H 05/25/18 06:30 Carbon Dioxide 25 mmol/L (21-32) 05/25/18 06:30 Anion Gap 7 MMOL/L (8-16) L 05/25/18 06:30 BUN 2 mg/dL (7-18) L* 05/25/18 06:30 Creatinine 0.7 mg/dL (0.55-1.3) 05/25/18 06:30 Creat Clearance w eGFR > 60 (>60) 05/25/18 06:30 Random Glucose 108 mg/dL (74-106) H 05/25/18 06:30 Lactic Acid 2.1 mmol/L (0.4-2.0) H 05/18/18 15:30 Calcium 8.6 mg/dL (8.5-10.1) 05/25/18 06:30 Magnesium 2.0 mg/dL (1.8-2.4) 05/25/18 06:30 Iron 30 ug/dL (27-139) 05/20/18 06:30 TIBC 266 ug/dL (250-450) 05/20/18 06:30 Iron Saturation 11 % (15-55) L 05/20/18 06:30 Ferritin 203.4 ng/ml (8-388) 05/20/18 06:30 Total Bilirubin 0.4 mg/dL (0.2-1) 05/25/18 06:30 AST 27 U/L (15-37) 05/25/18 06:30 ALT 20 U/L (13-61) 05/25/18 06:30 Alkaline Phosphatase 55 U/L (45-117) 05/25/18 06:30 Troponin I < 0.02 ng/ml (0.00-0.05) 05/18/18 15:30 C-Reactive Protein 8.1 MG/DL (0.00-0.3) H 05/20/18 06:30 Total Protein 6.5 g/dl (6.4-8.2) 05/25/18 06:30 Albumin 3.0 g/dl (3.4-5.0) L 05/25/18 06:30 Tumor Marker AFP 3.4 ng/ml (0.0-8.3) 05/20/18 06:30 Constitutional: No Distress ...Auscultate: Yes: Normoactive Bowel Sounds ...Palpate: Yes: Soft, Other (nontender) Labs: CBC, BMP 05/24/18 06:30 05/25/18 06:30 INR, PTT INR 1.08 (0.83-1.09) 05/18/18 15:30 Assessment/Plan Resolving ischemic vs infectious colitis No GI objections to discharge Problem List - Problems (1) Colitis Code(s): K52.9 - NONINFECTIVE GASTROENTERITIS AND COLITIS, UNSPECIFIED (2) Diverticulosis Code(s): K57.90 - DVRTCLOS OF INTEST, PART UNSP, W/O PERF OR ABSCESS W/O BLEED (3) Family history of colon cancer in father Code(s): Z80.0 - FAMILY HISTORY OF MALIGNANT NEOPLASM OF DIGESTIVE ORGANS (4) History of cocaine abuse Code(s): Z87.898 - PERSONAL HISTORY OF OTHER SPECIFIED CONDITIONS (5) History of heroin abuse Code(s): Z87.898 - PERSONAL HISTORY OF OTHER SPECIFIED CONDITIONS (6) History of cholecystectomy Code(s): Z90.49 - ACQUIRED ABSENCE OF OTHER SPECIFIED PARTS OF DIGESTIVE TRACT (7) Diverticulitis Code(s): K57.92 - DVTRCLI OF INTEST, PART UNSP, W/O PERF OR ABSCESS W/O BLEED (8) Rectal bleeding Code(s): K62.5 - HEMORRHAGE OF ANUS AND RECTUM (9) Hepatitis C Code(s): B19.20 - UNSPECIFIED VIRAL HEPATITIS C WITHOUT HEPATIC COMA
[2018-05-25] MEDS: DEXTROSE 5%-0.45% SALINE 1,000 ML IV SCH ×2 (17:11→22:40)
--- NOTE | 2018-05-25 17:52 | PATH ---
Surgical Pathology Report Patient Name: MEGHANA SANTOS Med. Rec. #: [id number] /Age/Gender: 1950 (Age: 68) / F Account: [id number] Location: [facility] MED/SURG Taken: 05/24/2018 Received: 05/24/2018 Reported: 05/25/2018 Physicians: Flori Herman M.D. Specimen(s) Received A: BX DESCENDING COLON B: BX CECAL BIOPSY Clinical History Bloody diarrhea, abdominal pain Postoperative diagnosis: Resolving colitis, diverticulosis Final Diagnosis A. DESCENDING COLON, BIOPSY: COLONIC MUCOSA WITH MODERATE ACUTE COLITIS AND PATCHY MUCOSAL NECROSIS. DETACHED FRAGMENTS OF ACUTE INFLAMMATORY EXUDATE CONSISTENT WITH ULCER BED. SEE COMMENT. B. CECUM, BIOPSY: POLYPOID COLONIC MUCOSA WITH PROMINENT LYMPHOID AGGREGATE. Comment: Findings are compatible with ischemic colitis. Suggest clinical and endoscopic correlation. Prior materials are noted. Electronically Signed Anna Casper M.D. Gross Description A. Received in formalin, labeled "descending colon biopsy" are 3 gomez, irregular portions of soft tissue ranging from 0.1-0.4 cm. in greatest dimension. The specimens are submitted in toto in one cassette. B. Received in formalin, labeled "cecal biopsy" are 2 gomez, irregular portions of soft tissue measuring 0.2 and 0.4 cm. in greatest dimension. The specimens are submitted in toto in one cassette. /05/24/2018 saudi05/24/2018
--- NOTE | 2018-05-25 20:40 | PN ---
Progress Note, Physician History of Present Illness: No new complaints - Current Medication List Current Medications: Active Medications Acetaminophen (Tylenol -) 650 mg PO Q6H PRN PRN Reason: PAIN LEVEL 1-5 Last Admin: 05/23/18 05:42 Dose: 650 mg Al Hydroxide/Mg Hydroxide (Mylanta Oral Suspension -) 30 ml PO Q6H PRN PRN Reason: INDIGESTION Last Admin: 05/22/18 14:16 Dose: 30 ml Heparin Sodium (Porcine) (Heparin -) 5,000 unit SQ BID AUDRA Last Admin: 05/23/18 09:16 Dose: 5,000 unit Levofloxacin (Levaquin 500 Mg Premixed Ivpb -) 500 mg in 100 mls @ 100 mls/hr IVPB DAILY [facility]; Protocol Last Admin: 05/25/18 09:25 Dose: 100 mls/hr Metronidazole (Flagyl 500mg Premixed Ivpb -) 500 mg in 100 mls @ 100 mls/hr IVPB Q8H-IV AUDRA Last Admin: 05/25/18 17:11 Dose: 100 mls/hr Dextrose/Sodium Chloride (D5-1/2ns -) 1,000 mls @ 50 mls/hr IV ASDIR AUDRA Last Admin: 05/25/18 17:11 Dose: Not Given Levothyroxine Sodium (Synthroid -) 75 mcg PO DAILY@0700 [facility] Last Admin: 05/25/18 06:08 Dose: 75 mcg Ondansetron HCl (Zofran Injection) 4 mg IVPUSH Q8H PRN PRN Reason: NAUSEA Last Admin: 05/25/18 06:49 Dose: 4 mg Zolpidem Tartrate (Ambien -) 5 mg PO HS PRN PRN Reason: INSOMNIA Last Admin: 05/25/18 00:14 Dose: 5 mg - Objective Vital Signs: Vital Signs Temperature 97.5 F L 05/25/18 18:00 Pulse Rate 61 05/25/18 18:00 Respiratory Rate 18 05/25/18 18:00 Blood Pressure 148/80 05/25/18 18:00 O2 Sat by Pulse Oximetry (%) 95 05/25/18 09:00 Neck: Yes: WNL, Supple Cardiovascular: Yes: WNL, Regular Rate and Rhythm Respiratory: Yes: WNL, Regular, CTA Bilaterally Gastrointestinal: Yes: WNL, Normal Bowel Sounds, Soft Labs: CBC, BMP 05/24/18 06:30 05/25/18 06:30 INR, PTT INR 1.08 (0.83-1.09) 05/18/18 15:30 Problem List - Problems (1) Abdominal pain Assessment/Plan: Infectious colitis vs ischemic colitis Colonoscopy showed colitis and diverticulosis Await bx/pathology report Pt toelrating diet Stool studies for salmonella/shigella (+) for nonlactose fermenting Gnb IV Flagyl/levaquin DC planning for am Code(s): R10.9 - UNSPECIFIED ABDOMINAL PAIN (2) Rectal bleeding Assessment/Plan: No further bleeding Monitor H/H Pt hemodynamically stable Code(s): K62.5 - HEMORRHAGE OF ANUS AND RECTUM (3) Hypothyroid Assessment/Plan: Cont levothyroxine Code(s): E03.9 - HYPOTHYROIDISM, UNSPECIFIED (4) History of heroin abuse Code(s): Z87.898 - PERSONAL HISTORY OF OTHER SPECIFIED CONDITIONS
[2018-05-25] MEDS: HEPARIN NA (PORCINE) 5,000 UNITS/ML 1ML VIAL SQ SCH (22:40)
[2018-05-26] MEDS: LEVOTHYROXINE NA 75 MCG TABLET (FP) PO SCH (06:02)
[2018-05-26 08:54] LABS: ANION GAP 7 MMOL/L (8-16); BLOOD UREA NITROGEN 4 mg/dL (7-18); CALCIUM 8.8 mg/dL (8.5-10.1); CHLORIDE 106 mmol/L (98-107); CO2 27 mmol/L (21-32); CREATININE 0.8 mg/dL (0.55-1.3); GLUCOSE,RANDOM 103 mg/dL (74-106); POTASSIUM 3.9 mmol/L (3.5-5.1); SODIUM 140 mmol/L (136-145)
[2018-05-26] MEDS: HEPARIN NA (PORCINE) 5,000 UNITS/ML 1ML VIAL SQ SCH (09:55)
--- NOTE | 2018-05-26 11:55 | PN ---
Progress Note, Physician - Current Medication List Current Medications: Active Medications Acetaminophen (Tylenol -) 650 mg PO Q6H PRN PRN Reason: PAIN LEVEL 1-5 Last Admin: 05/23/18 05:42 Dose: 650 mg Al Hydroxide/Mg Hydroxide (Mylanta Oral Suspension -) 30 ml PO Q6H PRN PRN Reason: INDIGESTION Last Admin: 05/22/18 14:16 Dose: 30 ml Heparin Sodium (Porcine) (Heparin -) 5,000 unit SQ BID AUDRA Last Admin: 05/26/18 09:55 Dose: 5,000 unit Levofloxacin (Levaquin 500 Mg Premixed Ivpb -) 500 mg in 100 mls @ 100 mls/hr IVPB DAILY [facility]; Protocol Last Admin: 05/26/18 09:55 Dose: 100 mls/hr Metronidazole (Flagyl 500mg Premixed Ivpb -) 500 mg in 100 mls @ 100 mls/hr IVPB Q8H-IV AUDRA Last Admin: 05/26/18 10:52 Dose: 100 mls/hr Dextrose/Sodium Chloride (D5-1/2ns -) 1,000 mls @ 50 mls/hr IV ASDIR AUDRA Last Admin: 05/25/18 22:40 Dose: 50 mls/hr Levothyroxine Sodium (Synthroid -) 75 mcg PO DAILY@0700 [facility] Last Admin: 05/26/18 06:02 Dose: 75 mcg Ondansetron HCl (Zofran Injection) 4 mg IVPUSH Q8H PRN PRN Reason: NAUSEA Last Admin: 05/25/18 06:49 Dose: 4 mg Zolpidem Tartrate (Ambien -) 5 mg PO HS PRN PRN Reason: INSOMNIA Last Admin: 05/25/18 22:40 Dose: 5 mg - Objective Vital Signs: Vital Signs Temperature 98.1 F 05/26/18 10:00 Pulse Rate 74 05/26/18 10:00 Respiratory Rate 20 05/26/18 10:00 Blood Pressure 135/79 05/26/18 10:00 O2 Sat by Pulse Oximetry (%) 96 05/25/18 21:00 Labs: CBC, BMP 05/24/18 06:30 05/26/18 07:55 INR, PTT INR 1.08 (0.83-1.09) 05/18/18 15:30
--- NOTE | 2018-05-26 13:39 | PN ---
Progress Note, Physician History of Present Illness: Pt seen and examined at bedside. She is tolerating diet. She denies shortness of breath. - Current Medication List Current Medications: Active Medications Acetaminophen (Tylenol -) 650 mg PO Q6H PRN PRN Reason: PAIN LEVEL 1-5 Last Admin: 05/23/18 05:42 Dose: 650 mg Al Hydroxide/Mg Hydroxide (Mylanta Oral Suspension -) 30 ml PO Q6H PRN PRN Reason: INDIGESTION Last Admin: 05/22/18 14:16 Dose: 30 ml Heparin Sodium (Porcine) (Heparin -) 5,000 unit SQ BID AUDRA Last Admin: 05/26/18 09:55 Dose: 5,000 unit Levofloxacin (Levaquin 500 Mg Premixed Ivpb -) 500 mg in 100 mls @ 100 mls/hr IVPB DAILY [facility]; Protocol Last Admin: 05/26/18 09:55 Dose: 100 mls/hr Metronidazole (Flagyl 500mg Premixed Ivpb -) 500 mg in 100 mls @ 100 mls/hr IVPB Q8H-IV AUDRA Last Admin: 05/26/18 10:52 Dose: 100 mls/hr Dextrose/Sodium Chloride (D5-1/2ns -) 1,000 mls @ 50 mls/hr IV ASDIR AUDRA Last Admin: 05/25/18 22:40 Dose: 50 mls/hr Levothyroxine Sodium (Synthroid -) 75 mcg PO DAILY@0700 [facility] Last Admin: 05/26/18 06:02 Dose: 75 mcg Ondansetron HCl (Zofran Injection) 4 mg IVPUSH Q8H PRN PRN Reason: NAUSEA Last Admin: 05/25/18 06:49 Dose: 4 mg Zolpidem Tartrate (Ambien -) 5 mg PO HS PRN PRN Reason: INSOMNIA Last Admin: 05/25/18 22:40 Dose: 5 mg - Objective Vital Signs: Vital Signs Temperature 98.1 F 05/26/18 10:00 Pulse Rate 74 05/26/18 10:00 Respiratory Rate 20 05/26/18 10:00 Blood Pressure 135/79 05/26/18 10:00 O2 Sat by Pulse Oximetry (%) 96 05/25/18 21:00 Constitutional: Yes: Calm Eyes: Yes: Conjunctiva Clear HENT: Yes: Atraumatic Cardiovascular: Yes: S1, S2 Respiratory: Yes: CTA Bilaterally Gastrointestinal: Yes: Soft Genitourinary: Yes: WNL Musculoskeletal: Yes: WNL Edema: No Neurological: Yes: Oriented Psychiatric: Yes: Oriented Labs: CBC, BMP 05/24/18 06:30 05/26/18 07:55 INR, PTT INR 1.08 (0.83-1.09) 05/18/18 15:30 Problem List - Problems (1) Abdominal pain Code(s): R10.9 - UNSPECIFIED ABDOMINAL PAIN (2) Diverticulitis Code(s): K57.92 - DVTRCLI OF INTEST, PART UNSP, W/O PERF OR ABSCESS W/O BLEED Assessment/Plan Current Medications Generic Name Dose Route Start Last Admin Trade Name Freq PRN Reason Stop Dose Admin Acetaminophen 650 mg 05/19/18 02:33 05/23/18 05:42 Tylenol - PO 650 mg Q6H PRN Administration PAIN LEVEL 1-5 Al Hydroxide/Mg Hydroxide 30 ml 05/22/18 14:10 05/22/18 14:16 Mylanta Oral Suspension - PO 30 ml Q6H PRN Administration INDIGESTION Heparin Sodium (Porcine) 5,000 unit 05/19/18 10:00 05/26/18 09:55 Heparin - SQ 5,000 unit BID AUDRA Administration Levofloxacin 500 mg in 100 mls @ 100 mls/hr 05/23/18 17:00 05/26/18 09:55 Levaquin 500 Mg Premixed Ivpb - IVPB 100 mls/hr DAILY AUDRA Administration Protocol Metronidazole 500 mg in 100 mls @ 100 mls/hr 05/23/18 18:00 05/26/18 10:52 Flagyl 500mg Premixed Ivpb - IVPB 100 mls/hr Q8H-IV AUDRA Administration Dextrose/Sodium Chloride 1,000 mls @ 50 mls/hr 05/24/18 17:05 05/25/18 22:40 D5-1/2ns - IV 50 mls/hr ASDIR AUDRA Administration Levothyroxine Sodium 75 mcg 05/19/18 07:00 05/26/18 06:02 Synthroid - PO 75 mcg DAILY@0700 AUDRA Administration Ondansetron HCl 4 mg 05/19/18 02:33 05/25/18 06:49 Zofran Injection IVPUSH 4 mg Q8H PRN Administration NAUSEA Zolpidem Tartrate 5 mg 05/22/18 17:42 05/25/18 22:40 Ambien - PO 5 mg HS PRN Administration INSOMNIA Impression 1. hypokalemia 2. low bun and gravity flow irrigator likely dilutional 3. hypothyroidism 4. diverticulitis 5. hx of drug use 6. hep c 7. hypothyroidism Plan - bun and gravity flow irrigator stabilizng - will d/c fluids - repeat labs in am - encourage PO intake - potassium is improved - abx per primary team Dr Chavarria
[2018-05-26 14:28] VITALS: BP 124/82; PULSE 92; TEMP 97.9
== END 2018-05-26 15:38 | disposition home or self-care (01) | DRG 248 ==
LOC: JER 13:16 → JERBED 18:24 → J7W 22:21
PROVIDERS: ADMIT Internal Medicine; ATTEND Internal Medicine
PROC: 0DDM8ZX Extraction of Descending Colon, Via Natural or Artificial Opening Endoscopic, Diagnostic (ICD-10-PCS; 2018-05-24)
PROC: 0DDH8ZX Extraction of Cecum, Via Natural or Artificial Opening Endoscopic, Diagnostic (ICD-10-PCS; principal; 2018-05-24 10:15)
DX: A02.0 Salmonella enteritis (principal); K55.9 Vascular disorder of intestine, unspecified; K63.3 Ulcer of intestine; K57.32 Diverticulitis of large intestine without perforation or abscess without bleeding; E87.6 Hypokalemia; K64.4 Residual hemorrhoidal skin tags; E03.9 Hypothyroidism, unspecified; B19.20 Unspecified viral hepatitis C without hepatic coma; K44.9 Diaphragmatic hernia without obstruction or gangrene; Z87.891 Personal history of nicotine dependence; Z96.652 Presence of left artificial knee joint; Z80.42 Family history of malignant neoplasm of prostate; Z80.0 Family history of malignant neoplasm of digestive organs
CPT/HCPCS: 36415; 71045-TC-FY; 74176-TC; 74177-TC; 80048; 80053; 81003; 81015; 82105; 82272; 82728; 82803; 83540; 83550; 83605; 83735; 84484; 85025; 85610; 85730; 86140; 86850; 86900; 86901; 87040; 87045; 87046; 87086; 87177; 87186; 87205; 87209; 87324; 87449; 88305-TC; 93005; 93010; 97116-GP; 97161-GP; 99284-25; J0131; J1644; J7030; Q9967

== ENCOUNTER 2020-07-04 05:21 | Day surgery (SDC) | payer OTHER ==
[2020-07-03 14:41] VITALS: BMI 34.0
[2020-07-04] MEDS ORDERED: BUPIVACAINE HCL/PF 0.25% (2.5MG/ML) 10 ML VIAL ONE (07:21)
[2020-07-04] MEDS ORDERED: methylPREDNISolone ACET (DEPO) 80 MG/1 ML VIAL ONE (07:21)
[2020-07-04] MEDS ORDERED: LIDOCAINE HCL/PF 2% SDV 5ML VIAL ONE (07:38)
[2020-07-04] MEDS ORDERED: PROPOFOL 20 ML ONE (07:38)
[2020-07-04] MEDS ORDERED: LIDOCAINE HCL 1%, 10 MG/ML (20ML VIAL) ONE (07:53)
[2020-07-04] MEDS ORDERED: LIDOCAINE HCL 1%, 10 MG/ML (50 mL VIAL) INF ONE (07:58)
[2020-07-04] MEDS ORDERED: methylPREDNISolone ACET (DEPO) 80 MG/1 ML VIAL IJ ONE (07:58)
[2020-07-04] MEDS ORDERED: BUPIVACAINE HCL/PF 0.25% (2.5MG/ML) 10 ML VIAL IJ ONE (07:58)
[2020-07-04 08:36] VITALS: TEMP 98
[2020-07-04 11:07] VITALS: BP 119/76; PULSE 76
== END 2020-07-04 10:50 | disposition home or self-care (01) ==
LOC: JASU-SURG 05:21
PROVIDERS: ATTEND Neurological Surgery
PROC: 3E0R33Z Introduction of Anti-inflammatory into Spinal Canal, Percutaneous Approach (ICD-10-PCS; 2020-07-04)
PROC: 3E0R3BZ Introduction of Anesthetic Agent into Spinal Canal, Percutaneous Approach (ICD-10-PCS; principal; 2020-07-04 07:30)
DX: M48.061 Spinal stenosis, lumbar region without neurogenic claudication (principal); M54.16 Radiculopathy, lumbar region
CPT/HCPCS: 76000-TC-FY

== ENCOUNTER 2022-09-03 03:55 | Day surgery (SDC) | payer OTHER ==
[2022-08-28 16:50] VITALS: BMI 34.0
[2022-09-03 06:38] VITALS: TEMP 97.6
[2022-09-03] MEDS ORDERED: BUPIVACAINE HCL/PF 0.5% (5MG/ML) 10 ML VIAL ONE (07:11)
[2022-09-03] MEDS ORDERED: methylPREDNISolone ACET (DEPO) 80 MG/1 ML VIAL ONE (07:11)
[2022-09-03] MEDS ORDERED: MIDAZOLAM HCL 2 MG/2 ML SINGLE DOSE VIAL ONE (07:24)
[2022-09-03] MEDS ORDERED: LIDOCAINE HCL 1%, 10 MG/ML (50 mL VIAL) INF ONE (07:52)
[2022-09-03] MEDS ORDERED: methylPREDNISolone ACET (DEPO) 80 MG/1 ML VIAL IJ ONE (07:52)
[2022-09-03] MEDS ORDERED: BUPIVACAINE HCL/PF 0.5% (5 MG/ML) 30 ML VIAL IJ ONE (07:52)
[2022-09-03 09:45] VITALS: BP 129/68; PULSE 77; RESP 20
== END 2022-09-03 09:46 | disposition home or self-care (01) ==
LOC: JASU-SURG 03:55
PROVIDERS: ATTEND Neurological Surgery
PROC: 3E0R3BZ Introduction of Anesthetic Agent into Spinal Canal, Percutaneous Approach (ICD-10-PCS; 2022-09-03)
PROC: 3E0R33Z Introduction of Anti-inflammatory into Spinal Canal, Percutaneous Approach (ICD-10-PCS; principal; 2022-09-03 07:30)
DX: M54.12 Radiculopathy, cervical region (principal); M43.16 Spondylolisthesis, lumbar region
CPT/HCPCS: 76000-TC-FY

== ENCOUNTER 2024-05-11 11:53 | Inpatient (IN) | payer OTHER ==
[2024-05-11] MEDS ORDERED: ACETAMINOPHEN INJECTION 100 ML ONE (13:30)
[2024-05-11] MEDS: SODIUM CHLORIDE 0.9% 500 ML INFUS.BAG IV ONE (13:31)
[2024-05-11] MEDS: ACETAMINOPHEN 1000 MG/100 ML BAG IVPB ONE (13:31)
[2024-05-11 13:54] LABS: BASO % 0.2 % (0-2.0); HEMATOCRIT 40.8 % (32.4-45.2); HEMOGLOBIN 12.9 GM/dL (10.7-15.3); LYMPH % 6.4 % (8-40); MCH 26.8 pg (25.7-33.7); MCHC 31.7 g/dl (32.0-36.0); MEAN CELL VOLUME 84.8 fl (80-96); MEAN PLT VOLUME 7.7 fl (7.5-11.1); MONO % 9.7 % (3.8-10.2); NEUT % 83.7 % (42.8-82.8); PLATELET COUNT 213 10^3/uL (134-434); RBC 4.81 M/mm3 (3.60-5.2); RDW 13.6 % (11.6-15.6); WHITE BLOOD COUNT 19.4 K/mm3 (4.0-10.0)
[2024-05-11 14:00] LABS: INR 1.26 (0.83-1.09); PROTHROMBIN TIME (PATIENT) 14.1 SEC (9.7-13.0)
[2024-05-11 14:03] LABS: ACTIVATED PTT 32.6 SECONDS (25.2-36.5)
[2024-05-11 14:04] LABS: CALCIUM 9.3 mg/dL (8.5-10.1)
[2024-05-11 14:05] LABS: ALBUMIN 3.7 g/dl (3.4-5.0); BLOOD UREA NITROGEN 12.8 mg/dL (7-18)
[2024-05-11 14:09] LABS: BILIRUBIN,TOTAL 1.1 mg/dL (0.2-1)
[2024-05-11 14:10] LABS: TOT PROT 7.6 g/dl (6.4-8.2)
[2024-05-11 15:14] LABS: ERYTHROCYTE SEDIMENTATION RATE 25 mm/hr (0-30)
[2024-05-11] MEDS: LACTATED RINGERS SOLUTION 1000 ML INFUS.BAG IV ONE ×2 (16:46→19:28)
[2024-05-11 16:51] LABS: PH,URINE 5.5 (5.0-8.0); URINE APPEARANCE CLEAR; URINE BILIRUBIN NEGATIVE (NEGATIVE); URINE COLOR YELLOW; URINE GLUCOSE (UA) NEGATIVE (NEGATIVE); URINE KETONE NEGATIVE (NEGATIVE); URINE LEUK ESTERASE NEGATIVE (NEGATIVE); URINE NITRITE NEGATIVE (NEGATIVE); URINE PROTEIN NEGATIVE (NEGATIVE); URINE UROBILINOGEN 0.2 mg/dL (0.2-1.0)
[2024-05-11] MEDS ORDERED: FENTANYL CITRATE/PF 50 MCG/ML VIAL ONE (17:00)
[2024-05-11] MEDS ORDERED: ONDANSETRON 4 MG/2 ML VIAL IVPUSH PRN (19:02)
[2024-05-11 21:02] VITALS: BMI 34.3
[2024-05-11] MEDS: DEXTROSE 5%-0.45% SALINE 1,000 ML IV SCH (22:05)
[2024-05-12] MEDS: GABAPENTIN 300 MG CAPSULE PO ONE (02:48)
[2024-05-12] MEDS: MELATONIN 5 MG TABLETS PO PRN (02:48)
[2024-05-12] MEDS: LEVOTHYROXINE NA 75 MCG TABLET (FP) PO SCH (06:15)
[2024-05-12] MEDS ORDERED: GABAPENTIN 300 MG CAPSULE PO SCH (10:00)
[2024-05-12 10:11] LABS: BASO % 0.3 % (0-2.0); EOS % 0.2 % (0-4.5); HEMOGLOBIN 11.6 GM/dL (10.7-15.3); LYMPH % 12.6 % (8-40); MCHC 32.3 g/dl (32.0-36.0); MEAN CELL VOLUME 83.6 fl (80-96); MEAN PLT VOLUME 7.4 fl (7.5-11.1); MONO % 11.1 % (3.8-10.2); NEUT % 75.8 % (42.8-82.8); PLATELET COUNT 184 10^3/uL (134-434); RDW 13.6 % (11.6-15.6); WHITE BLOOD COUNT 11.7 K/mm3 (4.0-10.0)
[2024-05-12 10:29] LABS: POTASSIUM 3.7 mmol/L (3.5-5.1)
[2024-05-12] MEDS: ROSUVASTATIN CA 10 MG TABLET PO SCH (10:30)
[2024-05-12] MEDS: PANTOPRAZOLE 40 MG TABLET PO SCH (10:31)
[2024-05-12 10:36] LABS: CALCIUM 8.9 mg/dL (8.5-10.1)
[2024-05-12 10:37] LABS: BLOOD UREA NITROGEN 7.2 mg/dL (7-18)
[2024-05-12 10:39] LABS: BILIRUBIN,TOTAL 1.1 mg/dL (0.2-1)
[2024-05-12 10:40] LABS: CREATININE 0.8 mg/dL (0.55-1.3); TOT PROT 6.6 g/dl (6.4-8.2)
[2024-05-12] MEDS: ACETAMINOPHEN 325 MG TABLET (FP) PO PRN (15:29)
[2024-05-12] MEDS: LORATADINE 10 MG TABLET PO SCH (15:29)
[2024-05-12] MEDS: GABAPENTIN 300 MG CAPSULE PO SCH (21:55)
[2024-05-13 08:31] LABS: BASO % 0.3 % (0-2.0); EOS % 0.6 % (0-4.5); HEMATOCRIT 34.8 % (32.4-45.2); HEMOGLOBIN 11.6 GM/dL (10.7-15.3); LYMPH % 15.6 % (8-40); MCH 27.7 pg (25.7-33.7); MCHC 33.2 g/dl (32.0-36.0); MEAN CELL VOLUME 83.5 fl (80-96); MEAN PLT VOLUME 7.6 fl (7.5-11.1); MONO % 12.5 % (3.8-10.2); PLATELET COUNT 173 10^3/uL (134-434); RBC 4.17 M/mm3 (3.60-5.2); RDW 13.8 % (11.6-15.6); WHITE BLOOD COUNT 8.9 K/mm3 (4.0-10.0)
[2024-05-13 08:57] LABS: POTASSIUM 3.6 mmol/L (3.5-5.1)
[2024-05-13 08:59] LABS: ALBUMIN 2.8 g/dl (3.4-5.0); BLOOD UREA NITROGEN 4.9 mg/dL (7-18); CALCIUM 8.3 mg/dL (8.5-10.1)
[2024-05-13 09:03] LABS: CREATININE 0.7 mg/dL (0.55-1.3)
[2024-05-13 09:05] LABS: BILIRUBIN,TOTAL 0.7 mg/dL (0.2-1); TOT PROT 6.4 g/dl (6.4-8.2)
[2024-05-14 10:43] LABS: BASO % 0.5 % (0-2.0); EOS % 1.1 % (0-4.5); HEMATOCRIT 37.7 % (32.4-45.2); LYMPH % 18.2 % (8-40); MCH 26.9 pg (25.7-33.7); MCHC 31.8 g/dl (32.0-36.0); MEAN CELL VOLUME 84.4 fl (80-96); MEAN PLT VOLUME 7.6 fl (7.5-11.1); MONO % 9.3 % (3.8-10.2); NEUT % 70.9 % (42.8-82.8); PLATELET COUNT 227 10^3/uL (134-434); RBC 4.46 M/mm3 (3.60-5.2); RDW 13.8 % (11.6-15.6)
[2024-05-14 11:04] LABS: POTASSIUM 3.6 mmol/L (3.5-5.1)
[2024-05-14 11:06] LABS: CALCIUM 8.8 mg/dL (8.5-10.1)
[2024-05-14 11:10] LABS: CREATININE 0.8 mg/dL (0.55-1.3)
[2024-05-14 11:11] LABS: BILIRUBIN,TOTAL 0.6 mg/dL (0.2-1)
[2024-05-15 20:40] VITALS: RESP 18
[2024-05-16 15:48] VITALS: BP 115/76; PULSE 95; TEMP 97.7
== END 2024-05-16 16:43 | disposition home health service (06) | DRG 392 ==
LOC: JER 11:53 → JERBED 16:42 → J5S 19:47
PROVIDERS: ADMIT Internal Medicine; ATTEND Internal Medicine
PROC: 0S9D3ZZ Drainage of Left Knee Joint, Percutaneous Approach (ICD-10-PCS; principal; 2024-05-13)
DX: A09 Infectious gastroenteritis and colitis, unspecified (principal); I10 Essential (primary) hypertension; E03.9 Hypothyroidism, unspecified; M25.562 Pain in left knee; G62.9 Polyneuropathy, unspecified; Z96.652 Presence of left artificial knee joint
CPT/HCPCS: 0241U-QW; 36415; 71045-TC-FY; 73560-TC-LT-FY; 74177-TC; 80053; 81003; 83605; 83690; 84443; 84484; 85025; 85610; 85651; 85730; 86140; 86850; 86900; 86901; 87040; 87086; 93005; 93010; 97116-GP; 97161-GP; 99285-25; J0131; Q9967